=== PATIENT | female | born 1965 | race Two or more races ===

== ENCOUNTER 2025-09-27 10:13 | Inpatient (IN) | payer MEDICARE, MEDICAID, SELFPAY ==
[2025-09-27] VITALS (15 sets, daily range): BP systolic 125–161; BP diastolic 75–102; PULSE 62–85; RESP 13–19; TEMP 36.4–37.2; O2SAT 90–99; BMI 27.4; BMI 31.2
--- NOTE | 2025-09-27 10:49 | XR_ITS ---
Examination: CT chest, without intravenous contrast. CT abdomen, without intravenous contrast. CT pelvis, without intravenous contrast. 2-D sagittal and coronal reconstructions. 3-D reconstructions. Date and time of exam: September 27, 2025, 11:20 p.m. INDICATIONS: Patient drank hydrogen peroxide today with nausea vomiting CTDI vol (mgy) 8.56 DLP (MGycm) 583 Technique: Multiple CT images, 3.0 mm slice thickness, obtained chest, abdomen, pelvis, with the high-resolution 64 slice scanner.. Sagittal and coronal 2-D reconstructions are obtained. 3-D reconstructions Low dose protocols were performed. One or more of the following dose reduction techniques were used; automated exposure control, adjustment of the mA and/or KV according to patient size, use of iterative reconstruction technique. Findings: No thoracic aortic aneurysm dilatation Pulmonary artery segments are not enlarged No aspiration pneumonia No pleural disease Minimal air in the liver Liver is not enlarged Absent gallbladder Common hepatic common bile ducts not enlarged No pancreatic mass Mild dilatation renal pelvicalyceal systems no ureteral calculi Normal appendix No bowel obstruction Intact urinary bladder IMPRESSION: No aspiration pneumonia Minimal air in the liver, clinical correlation advised No air in the portal vein or mesenteric vein noted No bowel ischemia Absent gallbladder Mild dilatation renal pelvicalyceal systems, consider urinary tract infection Normal appendix No bowel obstruction
--- NOTE | 2025-09-27 10:58 | PC.NURSE ---
CALLED POISON CONTROL AND SPOKE TO JAMIE WITH THE FOLLOWING: OBS 6HR CT- R/O GAS EMBOLISM- CT CHEST/ABD, IF POSITIVE FOR GAS EMBOLISM PT WILL NEED TREATMENT WITH HYPERBARIC OXYGEN GIVE PT ANTIEMETICS, SUPPORTIVE CARE
--- NOTE | 2025-09-27 11:20 | EDNOTE_ITS ---
ED Overdose RME/HPI General Chief Complaint: Overdose Stated Complaint: N/V Time Seen by Provider: 09/27/25 11:13 Arrival date/time: 09/27/25 10:13 60-year-old female patient was brought in by EMS for evaluation regarding suicidal attempt. Incident happened about 10 AM this morning as patient ingested 3 to 4 ounces of hydrogen peroxide, now complaining of epigastric pain. Patient want to kill herself. After 20 minutes of ingestion patient vomited foamy vomitus with blood. Patient denies any other complaints. Related Data Allergies Allergy/AdvReac Type Severity Reaction Status Date / Time NKA Allergy Unknown Uncoded 09/27/25 10:23 Review of Systems Review of Systems Narrative Review of Systems: Review of system reviewed and within normal limits except mentioned in HPI ED Exam Narrative Physical exam: VITAL SIGNS: Reviewed. GENERAL APPEARANCE: Alert and interactive, follows commands, no acute distress, HEAD AND FACE: Non-traumatic. ENT: PERRL, pink conjunctivitis, eyelid no trauma, Mucous membrane moist. NECK: Supple, nontender, no nuchal rigidity. CHEST: No tenderness, no crepitus, no paradoxical movement, no retractions. LUNGS: Clear, well ventilated, symmetric, no rales, no wheezing, no ronchi, no stridor, good breath sounds bilaterally. HEART: Regular rate, regular rhythm, no murmur, no gallops. ABDOMEN: Soft, positive bowel sounds, nondistended, no guarding, epigastric pain,, no rebound, no masses, RECTAL: Deferred. GENITAL: Deferred. NEUROLOGICAL: Gross motor function intact sensory function intact, Appropriate for age. MUSCULOSKELETAL: low back nontender, full range of motion. EXTREMITIES: Nontender, full range of motion. SKIN: Color pink, dry, no rash, no lacerations, no abrasions, no contusions. LYMPHATICS: Deferred. Course Quality Measures none Orders Category Date Time Status 179 Psychiatric Hold NOW Care 09/27/25 11:45 Ordered COVID-19 Screening Questionnaire NOW Care 09/27/25 12:38 Active Decision to Admit X1 Care 09/27/25 12:37 Active NPO NOW Care 09/27/25 11:41 Active One-to-one observation NOW Care 09/27/25 11:10 Active Suicide precautions NOW Care 09/27/25 11:34 Active Suicide precautions NOW Care 09/27/25 11:44 Active Consult to Gastroenterology Stat Cons 09/27/25 11:41 Ordered Diet NPO (NOW) Diet 09/27/25 11:[address] chest abdomen pelvis wo Stat Exams 09/27/25 10:49 Completed Alcohol, Urine Stat Lab 09/27/25 12:06 Ordered CBC Stat Lab 09/27/25 10:48 Completed CMP [Comprehensive Metabolic Panel] Stat Lab 09/27/25 10:48 Completed Drug Screen,Urine Stat Lab 09/27/25 12:06 Ordered Lactate (Lactic Acid) Stat Lab 09/27/25 11:42 Ordered Magnesium Stat Lab 09/27/25 10:48 Completed UA, C/S IF [Urinalysis, C/S if Indicated] Stat Lab 09/27/25 12:06 Received Ondansetron Inj [Zofran Inj] Med 09/27/25 11:35 Discontinued 4 mg IVP X1 ONE Pantoprazole Inj [Protonix Inj] Med 09/27/25 11:35 Discontinued 80 mg IVP X1 ONE Ringers Lactated 1000 ml [Lactated Ringers] 1,000 ml Med 09/27/25 11:35 Discontinued IV 999 mls/hr Vital Signs Vital signs: Vital Signs Temperature 98.4 F 09/27/25 10:26 Pulse Rate 62 09/27/25 10:26 Respiratory Rate 19 09/27/25 10:26 Blood Pressure 147/87 H 09/27/25 10:26 Pulse Oximetry (%) 99 09/27/25 10:26 Oxygen Delivery Method Room Air 09/27/25 10:26 Overdose MDM Narrative MDM Narrative:: 60-year-old female patient was brought in by EMS for evaluation regarding suicidal attempt. Incident happened about 10 AM this morning as patient ingested 3 to 4 ounces of hydrogen peroxide, now complaining of epigastric pain. Patient want to kill herself. After 20 minutes of ingestion patient vomited foamy vomitus with blood. Patient denies any other complaints. CT scan of the chest abdomen pelvis was done to rule out gas embolism, and it came back unremarkable. Except for mild air in the liver. No perforation noted patient is about workup came back unremarkable. Patient was given IV fluids, Protonix IV and Zofran. I consulted Dr. Kang, GI specialist on-call, who told me that patient needs to be scoped. Patient was placed on n.p.o., and will be admitted Spoke with hospitalist, who admitted the patient. Patient data External records reviewed:: None Clinical information provided by:: patient Social determinants that could affect healthcare access:: none Patient has the following chronic illnesses:: None How is presenting disease/condition affected by chronic disease/condition?: no chronic disease Evaluation data The following diagnostics were reviewed and interpreted by me:: lab results and radiology exam(s) Lab and/or radiology exams considered but not ordered:: None Interpretation Summary: See above Medications / Prescriptions Medications or Prescriptions considered but not ordered:: None Medication administrations:: Medication Administration History Discontinued Medications Lactated Ringer's (Lactated Ringers) 1,000 mls @ 999 mls/hr IV .Q1H1M ONE Stop: 09/27/25 12:35 Ondansetron HCl (Ondansetron Inj 2 Mg/Ml Inj 2 Ml) 4 mg IVP X1 ONE; Protocol Stop: 09/27/25 11:36 Pantoprazole Sodium (Pantoprazole Inj 40 Mg Vial) 80 mg IVP X1 ONE Stop: 09/27/25 11:36 IV fluids Zofran and Pepcid Consultations Consultation(s) initiated? (list below): No Diagnosis Overdose Differential Diagnosis: drug overdose and other (Hydrated peroxide poisoning, suicidal attempts) Most likely diagnosis given after review of the tests above:: Hydrogen peroxide poisoning, suicidal attempts Admission Indicated Admission indicated?: indicated Admission Request Was there a request for admission?: Yes Admission Attestation Admission request attestation: Discussed case with [Dr. Zuniga] from Hospitalist service regarding admission. Discussed patients ED course, exam findings, labs, and radiology results. The Hospitalist [agrees] to accept the patient for admission. Disposition Plan Disposition Plan: Admit Discharge Plan Plan Patient Disposition: Admit Acute Care w/in Hospital Discharge Disposition comment: Stable Problem List Clinical Impression: Poisoning by hydrogen peroxide, Attempted suicide Patient/Caregiver Discharge Instructions Print Language: Japanese Stand Alone Forms: Tracee Award Info., Patient Portal Info Letter
--- NOTE | 2025-09-27 11:25 | PC.NURSE ---
PT BIB EMS WITH CHIEF C/O ACCIDENTAL INGESTION OF HYDROGEN PEROXIDE. PT REPORTED THAT HER MOTHER HAD POUR 3-4OZ OF HYDROGEN PEROXIDE (UNKNOWN STRENGTH) INTO AN EMPTY BOTTLE OF WATER, AND PT REPORTED THAT SHE PLACED THE BOTTLE WITH HYDROGEN PEROXIDE IN HER CAR AND WENT TO [place]. PT THEN REPORTED THAT SHE FORGOT THAT THE HYDROGEN PEROXIDE WAS INSIDE THE BOTTLE AND DRINK IT ACCIDENTAL THINKING IT WAS WATER. PT SIGNIFICANT OTHER WAS AT BEDSIDE, AND THEN I ASKED THE PT IF SHE WANTED TO HARM HER SELF AND SHE QUICKLY SAID NO COVERING HER FACE WITH HER GOWN SO HER SIGNIFICANT OTHER WOULDN'T SEE HER REACTION, BUT THE PT APPEARED TO BE IN FEAR IN THE PRESENT OF HER SIGNIFICANT OTHER. I THEN ASKED HER SIGNIFICANT OTHER TO STEP OUT IN WHICH HE DID. I THEN ASK THE PT AGAIN IF SHE WANTED TO HARM HER SELF AND SHE ADMITTED TO [facility]. PT REPORTS THAT SHE CAN'T TAKE IT ANYMORE AND DOES NOT WANT TO LIVE. PT WAS EDUCATION ON THE PLAN OF CARE, VANESSA HAMMER MADE AWARE, PT PLACED ON A 179, SI PRECAUTIONS IN PLACED WITH ONE ON ONE SITTER IN PLACED.
[2025-09-27 11:49] LABS: Basophils # (Auto) 0.1 Thou/mm3 (0.0-0.2); Basophils % (Auto) 1 % (0-2.5); Eosinophils # (Auto) 0.1 Thou/mm3 (0.0-0.5); Eosinophils % (Auto) 1 % (0-10); Hematocrit 44.7 % (36.0-46.0); Hemoglobin 15.1 g/dL (12.0-16.0); Immature Granulocytes Auto 0.04 Thou/mm3 (0.00-0.00); Lymphocytes # (Auto) 1.9 Thou/mm3 (1.0-4.8); Lymphocytes % (Auto) 27 % (10-50); Mean Corpuscular HGB Conc 33.8 g/dl (31.0-37.0); Mean Corpuscular Hemoglobin 28.9 pg (25.0-35.0); Mean Corpuscular Volume 86 fL (80-100); Monocytes # (Auto) 0.5 Thou/mm3 (0.0-0.8); Monocytes % (Auto) 7 % (0-12); Neutrophils # (Auto) 4.4 Thou/mm3 (1.8-7.7); Neutrophils % (Auto) 63 % (37-80); Nucleated Red Blood Cell # 0.00 Thou/mm3 (0.00-0.00); Nucleated Red Blood Cell % 0 /100 WBC (0); Platelet Count 261 Thou/mm3 (140-440); RDW Standard Deviation 42.6 fL (36.4-46.3); Red Blood Count 5.22 Miln/mm3 (4.00-5.20); White Blood Count 7.0 Thou/mm3 (3.6-11.0)
[2025-09-27 12:07] LABS: Alanine Aminotransferase 32 U/L (10-49); Albumin, Serum 5.0 gm/dL (3.5-5.0); Albumin/Globulin Ratio 1.5 (1.2-2.2); Alkaline Phosphatase 142 U/L (46-116); Anion Gap 13 (7-16); Aspartate Amino Transferase 26 U/L (0-34); BUN/Creatinine Ratio 20 Ratio (12-20); Bilirubin,Total 0.9 mg/dL (0.3-1.2); Blood Urea Nitrogen 16 mg/dL (9-23); Calcium 9.6 mg/dL (8.3-10.6); Calcium (Corrected) 9.6 mg/dL (8.5-10.1); Carbon Dioxide 25.1 mMol/L (20.0-31.0); Chloride 102 mMol/L (98-107); Creatinine (Component) 0.8 mg/dL (0.6-1.3); Estimated Creatinine Clearance 79.4 mL/min (>60); Globulin 3.4 gm/dL (2.3-3.5); Glucose 330 mg/dL (74-106); Magnesium 2.0 mg/dL (1.6-2.6); Osmolality,Calculated 293 (275-295); Potassium 3.7 mMol/L (3.4-5.1); Sodium 140 mMol/L (136-145); Total Protein 8.4 gm/dL (5.7-8.2); eGFR > 60 See Note
[2025-09-27 12:17] LABS: Collection Type, Urine Clean Catch
[2025-09-27 12:42] LABS: Bilirubin,Urine Negative (Negative); Blood,Urine Trace (Negative); Clarity,Urine Clear (Clear/Hazy); Color,Urine Lt-Yellow (Lt Yel-Yel); Culture Indicated,Urine Not Indicated; Glucose, Urine 4+ (Negative); Ketones,Urine 2+ (Negative); Leukocyte Esterase,Urine Negative (Negative); Nitrite,Urine Negative (Negative); PH,Urine 6.0 (5.0-7.0); Protein,Urine 1+ (Neg - Trace); RBC,Urine 7 /hpf (0-3); Specific Gravity,Urine 1.039 (1.001-1.035); Squamous Epithelial Cell,Urine 1 /hpf (0-5); Urobilinogen,Urine Negative mg/dL (0.0-1.0); WBC,Urine 2 /hpf (0-5)
--- NOTE | 2025-09-27 12:42 | XR_ITS ---
Examination: CT abdomen with intravenous contrast CT pelvis with intravenous contrast 2-D coronal reconstructions 2-D sagittal reconstructions Date and time of exam: September 27, 2025, 1455 hours Patient drank hydrogen peroxide with possible portal venous gas. CTDI: vol (mGy) 8.75 DLP: (mGycm) 495 Technique: Multiple axial sections of the abdomen and pelvis have been obtained. 64 slice high-resolution scanner used. 3 mm axial sections have been obtained, post intravenous injection 60 cc [id number] 2-D sagittal, coronal reconstructions obtained. Low dose protocols were performed. One or more of the following dose reduction techniques were used; automated exposure control, adjustment of the mA and/or KV according to patient size, use of iterative reconstruction technique. Findings: Currently no air in the liver noted No air in the mesenteric vein or portal vein No hydronephrosis No bowel obstruction No free air Intact urinary bladder No pericecal inflammatory change Normal appendix IMPRESSION: No portal venous gas identified
[2025-09-27 12:49] LABS: Alcohol, Urine Negative (Negative); Amphetamine/Methamp Scrn,U Negative (Negative); Barbiturate Screen,Urine Negative (Negative); Benzodiazepines Screen,Urine Negative (Negative); Benzoylecgonine Screen, Ur Negative (Negative); Fentanyl Screen,Urine Negative (Negative); Opiate Screen,Urine Negative (Negative); THC Screen,Urine Negative (Negative)
[2025-09-27 12:55] LABS: Lactate (Lactic Acid) 3.4 mMol/L (0.4-2.0)
[2025-09-27] MEDS: ONDANSETRON INJ 2 MG/ML INJ 2 ML 4 MG IVP (13:01)
[2025-09-27] MEDS: RINGERS LACTATED 1000 ML 1,000 ML 999 ML IV (13:03)
[2025-09-27 13:11] LABS: Lactate (Lactic Acid) 1.1 mMol/L (0.4-2.0)
[2025-09-27 13:16] LABS: INR 0.9 (0.9-1.3); Partial Thromboplastin Time 26.2 Seconds (22.0-36.0); Prothrombin Time 10.0 Seconds (9.0-12.2)
[2025-09-27 13:21] LABS: Lipase 35 U/L (12-53)
[2025-09-27 15:49] LABS: Reflex Lactate? Y
--- NOTE | 2025-09-27 15:56 | EKG_ITS ---
[facility] Test Date: 2025-09-27 Pat Name: CHELY PARIKH Department: Room: - Gender: Female Director Medical Safety: : 1965 Requested By: Michael Zuniga Order Number: [id number] Reading MD: Michael Zuniga Measurements Intervals Shushan Rate: 83 P: 65 WY: 144 QRS: 19 QRSD: 92 T: 42 QT: 395 QTc: 465 Interpretive Statements SINUS RHYTHM No previous ECG available for comparison /store/S0/[id number].pdf
--- NOTE | 2025-09-27 16:03 | PD.IMCONS ---
HPI Data of Consult Primary Care Provider: Physician No Primary/Family Consult Narrative Reason for consult: Hematemesis History of present illness: 60 years old female who ingested about 3 to 4 ounces of hydrogen peroxide 20 minutes later she had foamy Hematemesis and complaining of abdominal pain brought in by the ambulance She clearly wanted to kill herself and had a suicide attempt Poison center was called at my request cc:: cc: Review of Systems Review of Systems Systems Reviewed: All systems reviewed, normal except as documented Meds Home Medications and Allergies Allergies Allergy/AdvReac Type Severity Reaction Status Date / Time NKA Allergy Unknown Uncoded 09/27/25 10:23 Exam Vital Signs Temp Pulse Resp BP Pulse Ox O2 Del Method 98.2 F 84 17 138/92 H 95 Room Air 09/27/25 15:59 09/27/25 15:59 09/27/25 15:59 09/27/25 15:59 09/27/25 15:59 09/27/25 15:59 Constitutional Comments: Alert oriented Routine Respiratory Exam Comments: Normal to auscultation Routine Abdominal Exam Comments: Soft nontender Results Labs 09/27/25 10:48 09/27/25 10:48 Labs: Short CBC 09/27/25 Range/Units 10:48 WBC 7.0 (3.6-11.0) Thou/mm3 Hgb 15.1 (12.0-16.0) g/dL Hct 44.7 (36.0-46.0) % Plt Count 261 (140-440) Thou/mm3 BMP 09/27/25 10:48 Sodium 140 Potassium 3.7 Chloride 102 Carbon Dioxide 25.1 BUN 16 Creatinine 0.8 Glucose 330 H Calcium 9.6 Liver Function 09/27/25 Range/Units 10:48 Total Bilirubin 0.9 (0.3-1.2) mg/dL AST 26 (0-34) U/L ALT 32 (10-49) U/L Alkaline Phosphatase 142 H (46-116) U/L Albumin 5.0 (3.5-5.0) gm/dL Urine 09/27/25 Range/Units 12:06 Urine Color Lt-Yellow (Lt Yel-Yel) Urine Clarity Clear (Clear/Hazy) Urine pH 6.0 (5.0-7.0) Ur Specific [place] 1.039 H (1.001-1.035) Urine Protein 1+ A (Neg - Trace) Urine Glucose (UA) 4+ A (Negative) Assessment and Plan Additional Assessment & Plan Additional Plan: # Hematemesis secondary to ingestion of hydrogen peroxide CT scan of the abdomen pelvis negative except for air in the liver with no air in the biliary tree Plan N.p.o. IV Protonix Consent for fiberoptic esophagogastroduodenoscopy with possible biopsy possible therapeutic intervention under intravenous moderate sedation Thank you for the opportunity to participate in the care of this patient
--- NOTE | 2025-09-27 16:41 | ESHP_ITS ---
<Statement entered by Michael Zuniga MD - 09/28/25 05:34> Patient was seen and examined at bedside. I agree on the assessment and plan on this note as documented by resident Dr Sarabjit Fabian DO PGY1. 60-year-old female with past medical history of diabetes, hypertension, depression and hyperlipidemia presented to [facility] on 09/27/2025 with a chief complaint of suicide attempt after ingestion of hydrogen peroxide 3%. Patient reported ingesting about 3 to 4 ounces about 10 AM this morning. Poison control was called by ED, per poison control observe patient for 6 hours, CT to rule out gas embolism. CT abdomen pelvis chest without contrast negative and CT abdomen pelvis with contrast negative for any gas in portal system. Case was discussed with gastroenterology by ER patient will bleed EGD and supportive management, admitted to hospital. Scheduled for EGD today continue Protonix 40 twice daily, Zofran as needed. Started patient on sliding scale insulin and regular diet for management of diabetes blood glucose 350 on presentation. Will continue to monitor patient overnight consider medically clearing for discharge for crisis evaluation in a.m. Case discussed with attending Dr. Jessica Zuniga MD PGY-2 Documentation for date of: 09/27/25 HPI History of Present Illness History of present illness: History of Present Illness: Zack Mccartney, is 60yF, with PMH of diabetes, HTN, hypercholesterolemia, depression, leg length discrepancy (R>L), presented to the hospital on 09/27/2025 following a reported suicide attempt involving the ingestion of hydrogen peroxide. The patient stated that at approximately 10:00 am this morning (09/27), she consumed an estimated 3-4 ounces of a 3% hydrogen peroxide solution. She reported experiencing epigastric pain afterwards. She endorsed a history of prior suicidal behavior, including an incident in which she drove her car to the edge of a yamel with the intention of driving off, but stopped before acting on the impulse. The patient described multiple ongoing psychosocial stressors contributing to her depressive symptoms. She reported significant relational stress with her boyfriend, who she stated has alcohol use issues. She noted frequent verbal arguments related to his alcohol consumption, but denied any physical altercations. Per ED note, after 20 minutes of ingestion, patient vomited foamy vomitus with blood. The patient was notably tearful and exhibited emotional distress. She still had epigastric pain at the time of examination. Denied N/V, headache, palpitation, chest pain. Patient will be admitted for management of hydrogen peroxide intoxication. ED course: Vitals: Temperature 98.4, AK 62, RR 19, BP 147/87, 99% O2 saturation on room air. Labs: WBC 7.0, Hgb 15.1, sodium 140, potassium 3.7, creatinine 0.8, glucose 330, lactic acid 3.4, ALP 142, AST 26, ALT 32, lipase 35 UA: Yellow clear urine, urine protein 1+, urine glucose 4+, urine ketones 2+, urine blood trace, urine RBC 7, urine bacteria none All urine toxicology was negative EKG (09/27/2025): Sinus Rhythm CT chest/abd/pelvis wo contrast (09/27/2025): No bowel ischemia, Absent gallbladder, Minimal air in the liver, No air in the portal vein or mesenteric vein noted CT abd/pelvis w contrast (09/27/2025): No portal venous gas identified In ED, patient received IV protonix 80mg x1, IV Zofran 4mg x1, IV bolus LR 1L x1 Medical history: As stated above Surgical history: Hysterectomy, Cholecystectomy (based on CT findings) Allergies: NKDA Medications: Pending official med rec Family history: Father had cancer Social history: Denies smoking cigarettes, drinking alcohol or using other illicit drugs Review of Systems Review of Systems Narrative Review of Systems: All 12 systems assessed and the patient denies unless otherwise stated in HPI Exam Vital Signs Temp Pulse Resp BP Pulse Ox O2 Del Method O2 Flow Rate 98.2 F 80 14 147/79 H 99 Room Air 3 09/27/25 15:59 09/27/25 16:30 09/27/25 16:30 09/27/25 16:30 09/27/25 16:30 09/27/25 15:59 09/27/25 16:30 Narrative Exam General: AAO x3, In emotional distress, tearful. Eye: PERRL, EOMI, normal conjunctiva, no scleral icterus HENT: Normocephalic, atraumatic, hearing intact to conversation at normal volume, moist oral mucosa Neck: Supple, non-tender, no JVD, no lymphadenopathy Lungs: Non-labored respirations, symmetric chest rise, Clear to auscultate bilaterally, No wheezing, rhonchi, crackles Heart: Peripheral pulses intact bilaterally, Regular Rate and Rhythm. Abdomen: Soft, non-distended, no palpable masses, mild epigastric pain on palpation. Musculoskeletal: No visible joint swelling, Right lower extremity swelling, Leg length discrepancy (right leg longer than left). Skin: Skin is warm, dry, no rashes or lesions. Psychiatric: Cooperative, appropriate mood and affect, Awake and alert, not agitated Neuro: Cranial nerves II-XII grossly intact. Strength 5/5 throughout. Sensations intact to light touch. Results: Labs 09/28/25 04:34 09/28/25 04:34 Labs: Short CBC 09/27/25 Range/Units 10:48 WBC 7.0 (3.6-11.0) Thou/mm3 Hgb 15.1 (12.0-16.0) g/dL Hct 44.7 (36.0-46.0) % Plt Count 261 (140-440) Thou/mm3 BMP 09/27/25 10:48 Sodium 140 Potassium 3.7 Chloride 102 Carbon Dioxide 25.1 BUN 16 Creatinine 0.8 Glucose 330 H Calcium 9.6 Liver Function 09/27/25 Range/Units 10:48 Total Bilirubin 0.9 (0.3-1.2) mg/dL AST 26 (0-34) U/L ALT 32 (10-49) U/L Alkaline Phosphatase 142 H (46-116) U/L Albumin 5.0 (3.5-5.0) gm/dL Urine 09/27/25 Range/Units 12:06 Urine Color Lt-Yellow (Lt Yel-Yel) Urine Clarity Clear (Clear/Hazy) Urine pH 6.0 (5.0-7.0) Ur Specific [place] 1.039 H (1.001-1.035) Urine Protein 1+ A (Neg - Trace) Urine Glucose (UA) 4+ A (Negative) Quality Measures Quality Measures none Medications Home Medications and Allergies Allergies Allergy/AdvReac Type Severity Reaction Status Date / Time NKA Allergy Unknown Uncoded 09/27/25 10:23 Visit Medications Al Hydrox/Mg Hydrox/Simethicone (Mg Hyd/Al Hyd/Maximino (Maalox Reg) Susp 30 Ml Udc) 15 ml PO Q4HR EFREN Stop: 10/27/25 17:59 Dextrose (Dextrose 50%-Water Inj 50 Ml Syringe) 25 ml IV Q15MIN PRN PRN Reason: BG 50-70 responsive npo pt Stop: 10/27/25 16:37 Dextrose (Dextrose 50%-Water Inj 50 Ml Syringe) 50 ml IV Q15MIN PRN PRN Reason: BG <50 OR BG <70 & pt unresponsive Stop: 10/27/25 16:37 Diphenhydramine HCl (Diphenhydramine Inj 50 Mg/Ml Vial) 25 mg IVP PRNMRX1 PRN PRN Reason: MODERATE SEDATION Fentanyl Citrate (Fentanyl Cit Inj 50 Mcg/Ml Amp 2ml) 50 mcg IVP Q2M PRN PRN Reason: MODERATE SEDATION Glucagon (Glucagon Inj 1 Mg Vial) 1 mg IM Q15MIN PRN PRN Reason: BG <70, and no IV access Lactated Ringer's (Lactated Ringers) 1,000 mls @ 75 mls/hr IV .[id number] [facility] Stop: 09/28/25 05:19 Insulin Human Lispro (Insulin Lispro (Admelog) 1 Unit/0.01 Ml Unit) 0 unit SC Q6HR EFREN; Protocol Stop: 10/27/25 17:59 Midazolam HCl (Midazolam Inj 1 Mg/Ml Vial 2 Ml) 2 mg IVP Q2M PRN PRN Reason: Moderate Sedation Ondansetron HCl (Ondansetron Inj 2 Mg/Ml Inj 2 Ml) 4 mg IVP Q6H PRN; Protocol PRN Reason: NAUSEA OR VOMITING Stop: 10/27/25 15:52 Pantoprazole Sodium (Pantoprazole Inj 40 Mg Vial) 40 mg IVP BID [facility] Stop: 10/27/25 20:59 Sucralfate (Sucralfate Susp 1 Gm/10 Ml Udc) 1 gm PO QID [facility] Stop: 10/27/25 16:59 Discontinued Medications Benzocaine (Benzocaine 20% (Hurricaine) Drift 1 Dose) 0 dose TOP X1 ONE Stop: 09/27/25 16:11 Lactated Ringer's (Lactated Ringers) 1,000 mls @ 999 mls/hr IV .Q1H1M ONE Stop: 09/27/25 12:35 Last Infusion: 09/27/25 14:40 Dose: Infused Ondansetron HCl (Ondansetron Inj 2 Mg/Ml Inj 2 Ml) 4 mg IVP X1 ONE; Protocol Stop: 09/27/25 11:36 Last Admin: 09/27/25 13:01 Dose: 4 mg Pantoprazole Sodium (Pantoprazole Inj 40 Mg Vial) 80 mg IVP X1 ONE Stop: 09/27/25 11:36 Last Admin: 09/27/25 12:57 Dose: 80 mg Assessment & Plan Plan Zack Mccartney, is 60yF, with PMH of diabetes, HTN, hypercholesterolemia, depression, leg length discrepancy (R>L), presented to the hospital on 09/27/2025 following a reported suicide attempt involving the ingestion of hydrogen peroxide. Patient will be admitted for management of hydrogen peroxide intoxication. #Caustic ingestion (Hydrogen Peroxide 3% solution) #Upper GI bleed rule out #Lactic Acidosis - Resolved -at approximately 10:00 am this morning (09/27), she consumed an estimated 3-4 ounces of a 3% hydrogen peroxide solution. -Epigastric pain afterwards -Per ED note, after 20 minutes of ingestion, patient vomited foamy vomitus with blood. -Lactic acid 3.4, now 1.1 -All urine toxicology was negative -EKG (09/27/2025): Sinus Rhythm -CT chest/abd/pelvis wo contrast (09/27/2025): No bowel ischemia, Absent gallbladder, Minimal air in the liver, No air in the portal vein or mesenteric vein noted -CT abd/pelvis w contrast (09/27/2025): No portal venous gas identified -EGD (09/27/2025): Esophagitis, Gastritis with hemorrhage, characterized by congestion (edema), Normal Examined duodenum Plan: -Maalox 15ml po q4hr -Carafate.sucralfate suspension 1g 4 times daily -IV protonix 40mg bid -IVF LR 75mls/hr #Suicidal ideation #Depression -Ingestion of hydrogen peroxide for attempted suicide -Prior suicidal behavior, including an incident in which she drove her car to the edge of a y[place] with the intention of driving off, but stopped before acting on the impulse. -Multiple psychosocial stressors including relationship with her boyfriend Plan: -TSH pending -Pending Med rec -One to One observation -Suicide precautions #Diabetes Mellitus #Hx of Hypercholesterolemia -On admission, patient's Blood glucose level was 330 Plan: -Pending HbA1c -Insulin Degludec 5units qd -On SSI #Leg length Discrepancy (R>L) #Right leg swelling -According to patient, her right leg often swells because all the pressure goes to her right leg because right leg is longer. -Pending US edgar doppler bilateral LE. Disposition: Med tele Diet: Regular diet GI prophylaxis: IV protonix 40mg bid DVT prophylaxis: SCD Code: FULL Assessment and plan discussed with my attending physician Dr. Lopez and Dr. Zuniga (PGY-2) Dr. Fabian (PGY-1) - Internal medicine resident Attending Provider Attestation/Addendum 60 yo female with diabetes mellitus, hypertension, depression was admitted for abdominal pain and coffee ground emesis after ingesting Hydrogen peroxie at home in an apparent suicideal attempt. CT scan performed showed minimal air in the liver. She has stable vitals and was taken to GI lab for endoscopy by Dr. Kang. Continue 1 to 1 sitteer and close hemodynamic monitoring. Discussed with housestaff, PGY [address] Dr[address] Zuniga.
--- NOTE | 2025-09-27 16:41 | SUR.PHASEI ---
Pt. arrived to recovery via gurney, eyes closed, VSS with exception of 02 at 90%, NC applied at 2 liters, lung sounds clear, equal expansion ariane., no c/o pain or nausea at this time, pt. allowed to sleep. Report received from Callie MELO.
--- NOTE | 2025-09-27 17:03 | XR_ITS ---
Examination: Venous duplex lower extremity sonogram, bilateral. Date and time of exam: September 27, 2025, 1855 hours INDICATIONS: Leg swelling and pain this week Technique: Multiple sonographic images of the deep venous system have been obtained. B-mode/2-D grayscale imaging of vascular structures and Doppler spectral analysis (waveforms) and color performed Both legs are examined. Findings: Deep venous systems do not demonstrate abnormal echogenicity. All visualized deep veins exhibit compressibility. All visualized deep veins exhibit augmentation. Impression: Negative for deep vein thrombosis
--- NOTE | 2025-09-27 17:10 | SUR.PHASEI ---
Called and gave report on pt. s/p egd to Caesar MELO in ER.
--- NOTE | 2025-09-27 17:11 | PC.NURSE ---
OR NURSE ELA CALLED AND REPORTED THAT THIS PT WAS FOUND TO HAVE HEMORRHAGIC GASTRITIS SECONDARY TO HYDROGEN PEROXIDE. OR NURSE MADE AWARE TO CALLED REPORT TO XIOMARA MELO WHO IS GOING TO TAKE OVER THIS PT
--- NOTE | 2025-09-27 17:55 | SUR.PHASEI ---
Pt. transferred to room 383 via gurney by staff, VSS, no c/o pain or nausea at this time, pt. allowed to sleep, IV saline Linda izaguirre RN assumed care of pt.
[2025-09-27] MEDS: MG HYD/AL HYD/SIME (Maalox Reg) SUSP 30 ML UDC 15 ML PO ×2 (18:07→21:30)
--- NOTE | 2025-09-27 18:33 | PC.NURSE ---
patient cannot remember home meds and there are no external med lists available
--- NOTE | 2025-09-27 18:45 | PC.NURSE ---
Received call from poison control all questions answered. Stated continue with current supportive measures and can contact if any further questions.
[2025-09-27] MEDS: RINGERS LACTATED 1000 ML 1,000 ML 75 ML IV (19:36)
[2025-09-27] MEDS: SUCRALFATE SUSP 1 GM/10 ML UDC PO (20:12)
[2025-09-27] MEDS: INSULIN LISPRO (AdmeLOG) 1 UNIT/0.01 ML UNIT SC (20:16)
[2025-09-27 21:04] LABS: Lactic Acid, 3 HR 1.7 mMol/L (0.4-2.0)
[2025-09-28] VITALS (7 sets, daily range): BP systolic 125–145; BP diastolic 67–84; PULSE 75–86; RESP 15–98; TEMP 36.3–36.8; O2SAT 95–99; BMI 31.4
[2025-09-28] MEDS: MG HYD/AL HYD/SIME (Maalox Reg) SUSP 30 ML UDC 15 ML PO ×6 (01:51→21:05)
[2025-09-28] MEDS: SUCRALFATE SUSP 1 GM/10 ML UDC PO ×4 (05:18→20:50)
[2025-09-28 06:26] LABS: Basophils # (Auto) 0.1 Thou/mm3 (0.0-0.2); Basophils % (Auto) 1 % (0-2.5); Eosinophils # (Auto) 0.2 Thou/mm3 (0.0-0.5); Eosinophils % (Auto) 2 % (0-10); Hematocrit 40.7 % (36.0-46.0); Hemoglobin 13.6 g/dL (12.0-16.0); Immature Granulocytes Auto 0.02 Thou/mm3 (0.00-0.00); Lymphocytes # (Auto) 2.2 Thou/mm3 (1.0-4.8); Lymphocytes % (Auto) 32 % (10-50); Mean Corpuscular HGB Conc 33.4 g/dl (31.0-37.0); Mean Corpuscular Hemoglobin 28.8 pg (25.0-35.0); Mean Corpuscular Volume 86 fL (80-100); Monocytes # (Auto) 0.6 Thou/mm3 (0.0-0.8); Monocytes % (Auto) 9 % (0-12); Neutrophils # (Auto) 3.9 Thou/mm3 (1.8-7.7); Neutrophils % (Auto) 57 % (37-80); Nucleated Red Blood Cell # 0.00 Thou/mm3 (0.00-0.00); Nucleated Red Blood Cell % 0 /100 WBC (0); Platelet Count 223 Thou/mm3 (140-440); RDW Standard Deviation 43.7 fL (36.4-46.3); Red Blood Count 4.72 Miln/mm3 (4.00-5.20); White Blood Count 6.9 Thou/mm3 (3.6-11.0)
[2025-09-28 06:53] LABS: Glucose Estimated Average 269 mg/dL (80-131); Hemoglobin A1C 11.0 % Hgb (4.8-6.0)
[2025-09-28 06:57] LABS: Alanine Aminotransferase 31 U/L (10-49); Albumin, Serum 4.3 gm/dL (3.5-5.0); Albumin/Globulin Ratio 1.5 (1.2-2.2); Alkaline Phosphatase 122 U/L (46-116); Anion Gap 8 (7-16); Aspartate Amino Transferase 34 U/L (0-34); BUN/Creatinine Ratio 18 Ratio (12-20); Bilirubin,Total 0.8 mg/dL (0.3-1.2); Blood Urea Nitrogen 14 mg/dL (9-23); Calcium 9.2 mg/dL (8.3-10.6); Calcium (Corrected) 9.2 mg/dL (8.5-10.1); Carbon Dioxide 28.4 mMol/L (20.0-31.0); Cardiac Risk Estimate 5.3 RATIO (3.7-5.6); Chloride 102 mMol/L (98-107); Cholesterol 252 mg/dL (132-200); Creatinine (Component) 0.8 mg/dL (0.6-1.3); Estimated Creatinine Clearance 67.3 mL/min (>60); Free T4 (Free Thyroxine) 1.24 ng/dL (0.89-1.76); Globulin 2.8 gm/dL (2.3-3.5); Glucose 288 mg/dL (74-106); HDL Cholesterol 48 mg/dL (40-60); LDL Cholesterol,Calculated 133 mg/dL (0-130); Magnesium 2.0 mg/dL (1.6-2.6); Osmolality,Calculated 287 (275-295); Phosphorous 2.8 mg/dL (2.4-5.1); Potassium 4.0 mMol/L (3.4-5.1); Sodium 138 mMol/L (136-145); Thyroid Stimulating Hormone 1.99 uIU/mL (0.55-4.78); Total Protein 7.1 gm/dL (5.7-8.2); Triglycerides 354 mg/dL (30-150); eGFR > 60 See Note
[2025-09-28] MEDS: INSULIN LISPRO (AdmeLOG) 1 UNIT/0.01 ML UNIT SC ×4 (07:45→20:52)
[2025-09-28] MEDS: INSULIN DEGLUDEC 5 UNIT/0.05 ML (PER 5 UNITS) SC ×2 (08:27→14:15)
[2025-09-28] MEDS: INSULIN LISPRO (AdmeLOG) 1 UNIT/0.01 ML UNIT 2 UNIT SC ×2 (14:16→17:19)
--- NOTE | 2025-09-28 15:21 | PD.RESPRO ---
Documentation for date of: 09/28/25 Subjective Subjective Interval history: Patient seen at bedside. Underwent EGD yesterday EGD shows gastritis otherwise unremarkable Continue pantoprazole sucralfate and Maalox Patient's blood sugar uncontrolled, adjusted sliding scale insulin Started on degludec 20 units, lispro 5 units ACHS Patient will be medically cleared once blood glucose control is achieved. Exam Vital Signs Temp Pulse Resp BP Pulse Ox O2 Del Method O2 Flow Rate 98.2 F 77 18 133/84 H 99 Room Air 2 09/28/25 12:00 09/28/25 12:00 09/28/25 12:00 09/28/25 12:00 09/28/25 12:00 09/28/25 12:00 09/27/25 16:51 Narrative Exam General: AAO x3, In emotional distress, tearful. Eye: PERRL, EOMI, normal conjunctiva, no scleral icterus HENT: Normocephalic, atraumatic, hearing intact to conversation at normal volume, moist oral mucosa Neck: Supple, non-tender, no JVD, no lymphadenopathy Lungs: Non-labored respirations, symmetric chest rise, Clear to auscultate bilaterally, No wheezing, rhonchi, crackles Heart: Peripheral pulses intact bilaterally, Regular Rate and Rhythm. Abdomen: Soft, non-distended, no palpable masses, mild epigastric pain on palpation. Musculoskeletal: No visible joint swelling, Right lower extremity swelling. Skin: Skin is warm, dry, no rashes or lesions. Psychiatric: Cooperative, appropriate mood and affect, Awake and alert, not agitated Neuro: Cranial nerves II-XII grossly intact. Strength 5/5 throughout. Sensations intact to light touch. Objective Labs 09/28/25 04:34 09/28/25 04:34 Labs: Laboratory Results - last 24 hr 09/27/25 09/27/25 09/28/25 15:01 20:48 04:34 WBC 6.9 RBC 4.72 Hgb 13.6 Hct 40.7 MCV 86 MCH 28.8 MCHC 33.4 RDW Std Deviation 43.7 Plt Count 223 D Neut % (Auto) 57 Lymph % (Auto) 32 [place] % (Auto) 9 Eos % (Auto) 2 Baso % (Auto) 1 Neut # (Auto) 3.9 Lymph # (Auto) 2.2 [place] # (Auto) 0.6 Eos # (Auto) 0.2 Baso # (Auto) 0.1 Immature Gran # (Auto) 0.02 H Absolute Nucleated RBC 0.00 Immature Gran % 0 Nucleated RBC % 0 Sodium 138 Potassium 4.0 Chloride 102 Carbon Dioxide 28.4 Anion Gap 8 BUN 14 Creatinine 0.8 Estim Creat Clear Calc 67.3 eGFR > 60 BUN/Creatinine Ratio [address] Glu mg/dL 269 H Hemoglobin A1c 11.0 H Calculated Osmolality 287 Lactic Acid 1.7 Calcium 9.2 Corrected Calcium 9.2 Phosphorus 2.8 Magnesium 2.0 Total Bilirubin 0.8 AST 34 ALT 31 Alkaline Phosphatase 122 H D Total Protein 7.1 Albumin 4.3 D Globulin 2.8 Albumin/Globulin Ratio 1.5 Triglycerides 354 H Cholesterol 252 H LDL Cholesterol, Calc 133 H HDL Cholesterol 48 Cholesterol/HDL Ratio 5.3 TSH 1.99 Free T4 1.24 Blood Type O Negative Antibody Screen NEGATIVE Blood Bank Wristband ID Yes Quality Measures Quality Measures none Assessment & Plan Assessment Current Active Medications: Generic Name Dose Route Start Last Admin Trade Name Freq PRN Reason Stop Dose Admin Al Hydrox/Mg Hydrox/Simethicone 15 ml 09/27/25 18:00 09/28/25 14:17 Mg Hyd/Al Hyd/Maximino (Maalox Reg) Susp 30 Ml Udc PO 10/27/25 17:59 15 ml Q4HR EFREN Administration Dextrose 25 ml 09/27/25 16:38 Dextrose 50%-Water Inj 50 Ml Syringe IV 10/27/25 16:37 Q15MIN PRN BG 50-70 responsive npo pt Dextrose 50 ml 09/27/25 16:38 Dextrose 50%-Water Inj 50 Ml Syringe IV 10/27/25 16:37 Q15MIN PRN BG <50 OR BG <70 & pt unresponsive Glucagon 1 mg 09/27/25 16:38 Glucagon Inj 1 Mg Vial IM Q15MIN PRN BG <70, and no IV access Insulin Degludec 10 unit 09/29/25 09:00 Insulin Degludec 5 Unit/0.05 Ml (Per 5 Units) SC 10/29/25 08:59 QDAY EFREN Insulin Human Lispro 0 unit 09/27/25 17:00 09/28/25 11:22 Insulin Lispro (Admelog) 1 Unit/0.01 Ml Unit SC 10/27/25 16:59 4 unit ACHS EFREN Administration Protocol Insulin Human Lispro 2 unit 09/28/25 13:20 09/28/25 14:16 Insulin Lispro (Admelog) 1 Unit/0.01 Ml Unit SC 10/28/25 13:19 2 unit ACHS EFREN Administration Ondansetron HCl 4 mg 09/27/25 15:53 Ondansetron Inj 2 Mg/Ml Inj 2 Ml IVP 10/27/25 15:52 Q6H PRN NAUSEA OR VOMITING Protocol Pantoprazole Sodium 40 mg 09/27/25 21:00 09/28/25 08:26 Pantoprazole Inj 40 Mg Vial IVP 10/27/25 20:59 40 mg BID EFREN Administration Sucralfate 1 gm 09/27/25 17:00 09/28/25 11:24 Sucralfate Susp 1 Gm/10 Ml Udc PO 10/27/25 16:59 1 gm QID EFREN Administration Plan Zack Mccartney, is 60yF, with PMH of diabetes, HTN, hypercholesterolemia, depression, leg length discrepancy (R>L), presented to the hospital on 09/27/2025 following a reported suicide attempt involving the ingestion of hydrogen peroxide. Patient will be admitted for management of hydrogen peroxide intoxication. #Gastritis #Caustic ingestion (Hydrogen Peroxide 3% solution) #Upper GI bleed ruled out #Lactic Acidosis - Resolved -at approximately 10:00 am this morning (09/27), she consumed an estimated 3-4 ounces of a 3% hydrogen peroxide solution. -Epigastric pain afterwards -Per ED note, after 20 minutes of ingestion, patient vomited foamy vomitus with blood. -Lactic acid 3.4, now 1.1 -All urine toxicology was negative -EKG (09/27/2025): Sinus Rhythm -CT chest/abd/pelvis wo contrast (09/27/2025): No bowel ischemia, Absent gallbladder, Minimal air in the liver, No air in the portal vein or mesenteric vein noted -CT abd/pelvis w contrast (09/27/2025): No portal venous gas identified -EGD (09/27/2025): Esophagitis, Gastritis with hemorrhage, characterized by congestion (edema), Normal Examined duodenum Plan: -Maalox 15ml po q4hr -Carafate.sucralfate suspension 1g 4 times daily -PO protonix 40mg bid #Suicidal ideation #Depression -Ingestion of hydrogen peroxide for attempted suicide -Prior suicidal behavior, including an incident in which she drove her car to the edge of a yamel with the intention of driving off, but stopped before acting on the impulse. -Multiple psychosocial stressors including relationship with her boyfriend Plan: -One to One observation -Suicide precautions #Diabetes Mellitus, hemoglobin A1c 11 #Hx of Hypercholesterolemia -On admission, patient's Blood glucose level was 330 Plan: - Insulin degludec 20 units daily - Lispro 5 units ACHS -> change to AC in a.m. - Sliding scale insulin step 3 - Hypoglycemia protocol #Right leg swelling -According to patient, her right leg often swells because all the pressure goes to her right leg because right leg is longer. - Venous Doppler negative for DVT Disposition: Med tele Diet: Regular diet GI prophylaxis: IV protonix 40mg bid DVT prophylaxis: SCD Code: FULL Case discussed with Attending Physician Dr. Frederic Keen MD Internal Medicine PGY-2 Disclaimer: This note was dictated by speech recognition. Minor errors in laboratory apparatus glass grinder may be present due to voice recognition software. Attending Provider Attestation/Addendum I have discussed and was present for the essential components of the history, physical examination, diagnosis, and treatment plan with the resident. I agree with the patient's care as documented by the resident and amended herein by me. Vivek Khan DO. Although this document has been carefully reviewed, there may still be some phonetic and other typographical errors. These errors are purely grammatical due to imperfections in the software program and should not be construed in any way to compromise the substance of the patient's medical care during this visit. Patient seen and evaluated this AM. No acute events overnight, patient was pleasant in the a.m., denied any SI/HI. Labs largely unremarkable however blood glucose elevated to 74 this morning. Patient does have uncontrolled type 2 diabetes, A1c was 11. Patient also has hyperlipidemia, triglycerides 354, total cholesterol 252 and LDL 133 measured this admission. EGD performed after the patient's caustic ingestion demonstrated esophagitis in the lower third of the esophagus, patchy severe inflammation with hemorrhage characterized by congestion was found in the entire stomach, and normal duodenum was noted. Patient Now on regular diet, will continue Maalox and Carafate per GI recommendations. No further GI workup is necessary. Once the patient's blood glucose normalizes, preferably under 200, we will medically clear the patient assuming no other issues arise and is cleared for social work evaluation.
[2025-09-28] MEDS: DICYCLOMINE INJ 10 MG/ML 2ML VIAL IM (15:25)
--- NOTE | 2025-09-28 18:13 | ESPR_ITS ---
Documentation for date of: 09/28/25 Subjective Subjective Interval history: Patient evaluated Hemoglobin hematocrit 13.6 and 40.7 Exam Vital Signs Temp Pulse Resp BP Pulse Ox O2 Del Method O2 Flow Rate 97.8 F 86 18 145/82 H 97 Room Air 2 09/28/25 16:00 09/28/25 16:00 09/28/25 16:00 09/28/25 16:00 09/28/25 16:00 09/28/25 16:00 09/27/25 16:51 Objective Labs 09/28/25 04:34 09/28/25 04:34 Labs: Laboratory Results - last 24 hr 09/27/25 09/28/25 20:48 04:34 WBC 6.9 RBC 4.72 Hgb 13.6 Hct 40.7 MCV 86 MCH 28.8 MCHC 33.4 RDW Std Deviation 43.7 Plt Count 223 D Neut % (Auto) 57 Lymph % (Auto) 32 [place] % (Auto) 9 Eos % (Auto) 2 Baso % (Auto) 1 Neut # (Auto) 3.9 Lymph # (Auto) 2.2 [place] # (Auto) 0.6 Eos # (Auto) 0.2 Baso # (Auto) 0.1 Immature Gran # (Auto) 0.02 H Absolute Nucleated RBC 0.00 Immature Gran % 0 Nucleated RBC % 0 Sodium 138 Potassium 4.0 Chloride 102 Carbon Dioxide 28.4 Anion Gap 8 BUN 14 Creatinine 0.8 Estim Creat Clear Calc 67.3 eGFR > 60 BUN/Creatinine Ratio 18 [address]ucose [address] Glu mg/dL 269 H Hemoglobin A1c 11.0 H Calculated Osmolality 287 Lactic Acid 1.7 Calcium 9.2 Corrected Calcium 9.2 Phosphorus 2.8 Magnesium 2.0 Total Bilirubin 0.8 AST 34 ALT 31 Alkaline Phosphatase 122 H D Total Protein 7.1 Albumin 4.3 D Globulin 2.8 Albumin/Globulin Ratio 1.5 Triglycerides 354 H Cholesterol 252 H LDL Cholesterol, Calc 133 H HDL Cholesterol 48 Cholesterol/HDL Ratio 5.3 TSH 1.99 Free T4 1.24 Impressions Impression: Status post ingestion of hydrogen peroxide with hemorrhagic gastritis Continue current management Assessment & Plan A&P Narrative # Hematemesis secondary to ingestion of hydrogen peroxide CT scan of the abdomen pelvis negative except for air in the liver with no air in the biliary tree Plan N.p.o. IV Protonix Consent for fiberoptic esophagogastroduodenoscopy with possible biopsy possible therapeutic intervention under intravenous moderate sedation Thank you for the opportunity to participate in the care of this patient Time Spent With Patient Time: Total time spent is greater than 50% in coordination of care (as documented) at patient's floor/unit and/or counseling patient:
[2025-09-28] MEDS: PANTOPRAZOLE 40 MG TABLET PO (20:50)
[2025-09-28] MEDS: INSULIN LISPRO (AdmeLOG) 1 UNIT/0.01 ML UNIT 5 UNIT SC (20:52)
[2025-09-28] MEDS: INSULIN DEGLUDEC 5 UNIT/0.05 ML (PER 5 UNITS) 10 UNIT SC (20:53)
[2025-09-29] VITALS (9 sets, daily range): BP systolic 118–153; BP diastolic 72–89; PULSE 76–91; RESP 12–98; TEMP 36.3–36.8; O2SAT 95–99
[2025-09-29] MEDS: MG HYD/AL HYD/SIME (Maalox Reg) SUSP 30 ML UDC 15 ML PO ×5 (05:07→21:00)
[2025-09-29] MEDS: SUCRALFATE SUSP 1 GM/10 ML UDC PO ×4 (05:07→20:42)
[2025-09-29 05:37] LABS: Basophils # (Auto) 0.0 Thou/mm3 (0.0-0.2); Basophils % (Auto) 1 % (0-2.5); Eosinophils # (Auto) 0.1 Thou/mm3 (0.0-0.5); Eosinophils % (Auto) 2 % (0-10); Hematocrit 38.8 % (36.0-46.0); Hemoglobin 13.2 g/dL (12.0-16.0); Immature Granulocytes Auto 0.03 Thou/mm3 (0.00-0.00); Lymphocytes # (Auto) 1.7 Thou/mm3 (1.0-4.8); Lymphocytes % (Auto) 30 % (10-50); Mean Corpuscular HGB Conc 34.0 g/dl (31.0-37.0); Mean Corpuscular Hemoglobin 29.7 pg (25.0-35.0); Mean Corpuscular Volume 87 fL (80-100); Monocytes # (Auto) 0.5 Thou/mm3 (0.0-0.8); Monocytes % (Auto) 9 % (0-12); Neutrophils # (Auto) 3.3 Thou/mm3 (1.8-7.7); Neutrophils % (Auto) 58 % (37-80); Nucleated Red Blood Cell # 0.00 Thou/mm3 (0.00-0.00); Nucleated Red Blood Cell % 0 /100 WBC (0); Platelet Count 205 Thou/mm3 (140-440); RDW Standard Deviation 43.0 fL (36.4-46.3); Red Blood Count 4.45 Miln/mm3 (4.00-5.20); White Blood Count 5.7 Thou/mm3 (3.6-11.0)
[2025-09-29 06:02] LABS: Alanine Aminotransferase 28 U/L (10-49); Albumin, Serum 4.0 gm/dL (3.5-5.0); Albumin/Globulin Ratio 1.5 (1.2-2.2); Alkaline Phosphatase 110 U/L (46-116); Anion Gap 10 (7-16); Aspartate Amino Transferase 26 U/L (0-34); BUN/Creatinine Ratio 26 Ratio (12-20); Bilirubin,Total 0.6 mg/dL (0.3-1.2); Blood Urea Nitrogen 18 mg/dL (9-23); Calcium 9.1 mg/dL (8.3-10.6); Calcium (Corrected) 9.1 mg/dL (8.5-10.1); Carbon Dioxide 27.3 mMol/L (20.0-31.0); Chloride 103 mMol/L (98-107); Creatinine (Component) 0.7 mg/dL (0.6-1.3); Estimated Creatinine Clearance 75.1 mL/min (>60); Globulin 2.6 gm/dL (2.3-3.5); Glucose 243 mg/dL (74-106); Magnesium 2.0 mg/dL (1.6-2.6); Osmolality,Calculated 289 (275-295); Phosphorous 3.5 mg/dL (2.4-5.1); Potassium 3.8 mMol/L (3.4-5.1); Sodium 140 mMol/L (136-145); Total Protein 6.6 gm/dL (5.7-8.2); eGFR > 60 See Note
[2025-09-29] MEDS: INSULIN LISPRO (AdmeLOG) 1 UNIT/0.01 ML UNIT SC ×4 (07:35→20:43)
[2025-09-29] MEDS: INSULIN LISPRO (AdmeLOG) 1 UNIT/0.01 ML UNIT 5 UNIT SC (07:36)
[2025-09-29] MEDS: PANTOPRAZOLE 40 MG TABLET PO ×2 (08:34→20:42)
[2025-09-29] MEDS: INSULIN DEGLUDEC 5 UNIT/0.05 ML (PER 5 UNITS) 20 UNIT SC (08:35)
[2025-09-29] MEDS: INSULIN LISPRO (AdmeLOG) 1 UNIT/0.01 ML UNIT 8 UNIT SC ×3 (11:36→20:44)
[2025-09-29] MEDS: INSULIN DEGLUDEC 5 UNIT/0.05 ML (PER 5 UNITS) SC (12:11)
--- NOTE | 2025-09-29 12:23 | PC.SS ---
Rounding: Per , pt blood sugars still being monitored, not medically clear yet. Makeda BARRIOS made aware and is on standby
--- NOTE | 2025-09-29 14:48 | ESPR_ITS ---
Documentation for date of: 09/29/25 Subjective Subjective Interval history: No overnight events. Patient seen examined at bedside. Patient initially resting comfortably, later in day became distressed complaining of burning pain in throat/stomach. Denied nausea, vomiting. Continue Maalox, sucralfate per GI recs. Increased insulin, blood glucose remains elevated. Psych eval prior to discharge once medically cleared. Exam Vital Signs Temp Pulse Resp BP Pulse Ox O2 Del Method O2 Flow Rate 98.1 F 77 18 153/89 H 95 Room Air 2 09/29/25 12:00 09/29/25 12:00 09/29/25 12:00 09/29/25 12:00 09/29/25 12:00 09/29/25 12:00 09/27/25 16:51 Narrative Exam General: AAO x3, In emotional distress, tearful. Eye: PERRL, EOMI, normal conjunctiva, no scleral icterus HENT: Normocephalic, atraumatic, hearing intact to conversation at normal volume, moist oral mucosa Neck: Supple, non-tender, no JVD, no lymphadenopathy Lungs: Non-labored respirations, symmetric chest rise, Clear to auscultate bilaterally, No wheezing, rhonchi, crackles Heart: Peripheral pulses intact bilaterally, Regular Rate and Rhythm. Abdomen: Soft, non-distended, no palpable masses, mild epigastric pain on palpation. Musculoskeletal: No visible joint swelling, Right lower extremity swelling. Skin: Skin is warm, dry, no rashes or lesions. Psychiatric: Cooperative, appropriate mood and affect, Awake and alert, not agitated, but tearful affect, able to be called. Neuro: Cranial nerves II-XII grossly intact. Strength 5/5 throughout. Sensations intact to light touch. Objective Labs 09/29/25 04:15 09/29/25 04:15 Labs: Laboratory Results - last 24 hr 09/29/25 04:15 WBC 5.7 RBC 4.45 Hgb 13.2 Hct 38.8 MCV 87 MCH 29.7 MCHC 34.0 RDW Std Deviation 43.0 Plt Count 205 Neut % (Auto) 58 Lymph % (Auto) 30 [place] % (Auto) 9 Eos % (Auto) 2 Baso % (Auto) 1 Neut # (Auto) 3.3 Lymph # (Auto) 1.7 [place] # (Auto) 0.5 Eos # (Auto) 0.1 Baso # (Auto) 0.0 Immature Gran # (Auto) 0.03 H Absolute Nucleated RBC 0.00 Immature Gran % 1 H Nucleated RBC % 0 Sodium 140 Potassium 3.8 Chloride 103 Carbon Dioxide 27.3 Anion Gap 10 BUN 18 Creatinine 0.7 Estim Creat Clear Calc 75.1 eGFR > 60 BUN/Creatinine Ratio 26 H Glucose 243 H Calculated Osmolality 289 Calcium 9.1 Corrected Calcium 9.1 Phosphorus 3.5 Magnesium 2.0 Total Bilirubin 0.6 AST 26 ALT 28 Alkaline Phosphatase 110 Total Protein 6.6 Albumin 4.0 Globulin 2.6 Albumin/Globulin Ratio 1.5 Quality Measures Quality Measures VTE prophylaxis Assessment & Plan Assessment Current Active Medications: Generic Name Dose Route Start Last Admin Trade Name Freq PRN Reason Stop Dose Admin Al Hydrox/Mg Hydrox/Simethicone 15 ml 09/27/25 18:00 09/29/25 13:28 Mg Hyd/Al Hyd/Maximino (Maalox Reg) Susp 30 Ml Udc PO 10/27/25 17:59 15 ml Q4HR EFREN Administration Dextrose 25 ml 09/27/25 16:38 Dextrose 50%-Water Inj 50 Ml Syringe IV 10/27/25 16:37 Q15MIN PRN BG 50-70 responsive npo pt Dextrose 50 ml 09/27/25 16:38 Dextrose 50%-Water Inj 50 Ml Syringe IV 10/27/25 16:37 Q15MIN PRN BG <50 OR BG <70 & pt unresponsive Glucagon 1 mg 09/27/25 16:38 Glucagon Inj 1 Mg Vial IM Q15MIN PRN BG <70, and no IV access Insulin Degludec 25 unit 09/30/25 09:00 Insulin Degludec 5 Unit/0.05 Ml (Per 5 Units) SC 10/30/25 08:59 QDAY [facility] Insulin Human Lispro 0 unit 09/28/25 16:04 09/29/25 11:35 Insulin Lispro (Admelog) 1 Unit/0.01 Ml Unit SC 10/27/25 16:59 4 unit ACHS [facility] Administration Protocol Insulin Human Lispro 8 unit 09/29/25 11:30 09/29/25 11:36 Insulin Lispro (Admelog) 1 Unit/0.01 Ml Unit SC 10/29/25 11:29 8 unit ACHS EFREN Administration Ondansetron HCl 4 mg 09/27/25 15:53 Ondansetron Inj 2 Mg/Ml Inj 2 Ml IVP 10/27/25 15:52 Q6H PRN NAUSEA OR VOMITING Protocol Pantoprazole Sodium 40 mg 09/28/25 21:00 09/29/25 08:34 Pantoprazole 40 Mg Tablet PO 10/28/25 20:59 40 mg BID EFREN Administration Sucralfate 1 gm 09/27/25 17:00 09/29/25 11:37 Sucralfate Susp 1 Gm/10 Ml Udc PO 10/27/25 16:59 1 gm QID EFREN Administration Plan Zack Mccartney, is 60yF, with PMH of diabetes, HTN, hypercholesterolemia, depression, leg length discrepancy (R>L), presented to the hospital on 09/27/2025 following a reported suicide attempt involving the ingestion of hydrogen peroxide. Patient will be admitted for management of hydrogen peroxide intoxication. #Gastritis #Caustic ingestion (Hydrogen Peroxide 3% solution) #Upper GI bleed ruled out #Lactic Acidosis - Resolved -at approximately 10:00 am this morning (09/27), she consumed an estimated 3-4 ounces of a 3% hydrogen peroxide solution. -Epigastric pain afterwards -Per ED note, after 20 minutes of ingestion, patient vomited foamy vomitus with blood. -Lactic acid 3.4, now 1.1 -All urine toxicology was negative -EKG (09/27/2025): Sinus Rhythm -CT chest/abd/pelvis wo contrast (09/27/2025): No bowel ischemia, Absent gallbladder, Minimal air in the liver, No air in the portal vein or mesenteric vein noted -CT abd/pelvis w contrast (09/27/2025): No portal venous gas identified -EGD (09/27/2025): Esophagitis, Gastritis with hemorrhage, characterized by congestion (edema), Normal Examined duodenum Plan: -Maalox 15ml po q4hr -Carafate.sucralfate suspension 1g 4 times daily -PO protonix 40mg bid #Diabetes Mellitus, hemoglobin A1c 11 #Hx of Hypercholesterolemia -On admission, patient's Blood glucose level was 330 Plan: - Insulin degludec 25 units daily - Lispro 8 units ACHS - Sliding scale insulin step 3 - Hypoglycemia protocol #Suicidal ideation #Depression -Ingestion of hydrogen peroxide for attempted suicide -Prior suicidal behavior, including an incident in which she drove her car to the edge of a [place] with the intention of driving off, but stopped before acting on the impulse. -Multiple psychosocial stressors including relationship with her boyfriend Plan: -One to One observation -Suicide precautions #Right leg swelling -According to patient, her right leg often swells because all the pressure goes to her right leg because right leg is longer. - Venous Doppler negative for DVT Disposition: Med tele Diet: Carb consistent low GI prophylaxis: IV protonix 40mg bid DVT prophylaxis: SCD Code: FULL Case discussed with Attending Physician Dr. Frederic Ashley MD Internal Medicine PGY-2 Disclaimer: This note was dictated by speech recognition. Minor errors in double backer may be present due to voice recognition software. Attending Provider Attestation/Addendum I have discussed and was present for the essential components of the history, physical examination, diagnosis, and treatment plan with the resident. I agree with the patient's care as documented by the resident and amended herein by me. Vivek Khan DO. Although this document has been carefully reviewed, there may still be some phonetic and other typographical errors. These errors are purely grammatical due to imperfections in the software program and should not be construed in any way to compromise the substance of the patient's medical care during this visit. Patient seen and evaluated this AM. No acute events overnight, patient did have throat pain this morning, likely from the caustic hydrogen peroxide she ingested prior to admission as part of her SI. Patient is not medically cleared as of yet, blood glucose still elevated in the 250s today, we did uptitrate the patient's insulin, will reevaluate, possible medical clearance for crisis evaluation tomorrow.
--- NOTE | 2025-09-29 15:07 | PC.SS ---
Allyson Dixon is a 60-year-old female admitted to Med Surg for Caustic Ingestion. SS conducted bedside contact with the patient to complete initial assessment and to discuss discharge planning, pt 1:1 merly Talbot, CAN assited with translating to pt as she is Swedish speaking. Role and reason explained. Patient confirmed demographic information. Patient identifies sister Ashley Benz [phone] as her surrogate decision maker. Pt states she is able to complete all ADL?s independently. No need for any source of DME, pt lives with her son Jimmy. Pt goes to [facility] in [place] for PCP needs. Pharmacy of choice is [facility]. Discharge options discussed and the pt wishes to return home, pt is pending medical clearance for a mental health eval.? If DC home family will provide transportation upon DC. visitor services associate will remain available to address any further concerns. DC Plan: Pending MHE (pending medical clearance) Contact: Allyson Soliz ? Address: Confirmed on face sheet PCP: [facility]
--- NOTE | 2025-09-29 17:45 | PD.IMPROG ---
Documentation for date of: 09/29/25 Subjective Subjective Interval history: patient evaluated on Protonix sucralfate and Maalox Exam Vital Signs Temp Pulse Resp BP Pulse Ox O2 Del Method O2 Flow Rate 97.8 F 91 12 130/79 98 Room Air 2 09/29/25 16:00 09/29/25 16:00 09/29/25 16:00 09/29/25 16:00 09/29/25 16:00 09/29/25 16:00 09/29/25 16:00 Objective Labs 09/29/25 04:15 09/29/25 04:15 Labs: Laboratory Results - last 24 hr 09/29/25 04:15 WBC 5.7 RBC 4.45 Hgb 13.2 Hct 38.8 MCV 87 MCH 29.7 MCHC 34.0 RDW Std Deviation 43.0 Plt Count 205 Neut % (Auto) 58 Lymph % (Auto) 30 [place] % (Auto) 9 Eos % (Auto) 2 Baso % (Auto) 1 Neut # (Auto) 3.3 Lymph # (Auto) 1.7 [place] # (Auto) 0.5 Eos # (Auto) 0.1 Baso # (Auto) 0.0 Immature Gran # (Auto) 0.03 H Absolute Nucleated RBC 0.00 Immature Gran % 1 H Nucleated RBC % 0 Sodium 140 Potassium 3.8 Chloride 103 Carbon Dioxide 27.3 Anion Gap 10 BUN 18 Creatinine 0.7 Estim Creat Clear Calc 75.1 eGFR > 60 BUN/Creatinine Ratio 26 H Glucose 243 H Calculated Osmolality 289 Calcium 9.1 Corrected Calcium 9.1 Phosphorus 3.5 Magnesium 2.0 Total Bilirubin 0.6 AST 26 ALT 28 Alkaline Phosphatase 110 Total Protein 6.6 Albumin 4.0 Globulin 2.6 Albumin/Globulin Ratio 1.5 Impressions Impression: Gastritis secondary to the injury caused by hydrogen peroxide ingestion No dysphagia Continue current management Assessment & Plan A&P Narrative # Hematemesis secondary to ingestion of hydrogen peroxide CT scan of the abdomen pelvis negative except for air in the liver with no air in the biliary tree Plan N.p.o. IV Protonix Consent for fiberoptic esophagogastroduodenoscopy with possible biopsy possible therapeutic intervention under intravenous moderate sedation Thank you for the opportunity to participate in the care of this patient Time Spent With Patient Time: Total time spent is greater than 50% in coordination of care (as documented) at patient's floor/unit and/or counseling patient:
[2025-09-30] VITALS (9 sets, daily range): BP systolic 127–138; BP diastolic 73–85; PULSE 74–90; RESP 15–98; TEMP 36.1–36.4; O2SAT 95–98
[2025-09-30] MEDS: SUCRALFATE SUSP 1 GM/10 ML UDC PO ×4 (05:00→20:43)
[2025-09-30] MEDS: MG HYD/AL HYD/SIME (Maalox Reg) SUSP 30 ML UDC 15 ML PO ×5 (05:00→21:21)
[2025-09-30 05:50] LABS: Basophils # (Auto) 0.0 Thou/mm3 (0.0-0.2); Basophils % (Auto) 1 % (0-2.5); Eosinophils # (Auto) 0.1 Thou/mm3 (0.0-0.5); Eosinophils % (Auto) 1 % (0-10); Hematocrit 39.4 % (36.0-46.0); Hemoglobin 13.3 g/dL (12.0-16.0); Immature Granulocytes Auto 0.03 Thou/mm3 (0.00-0.00); Lymphocytes # (Auto) 2.0 Thou/mm3 (1.0-4.8); Lymphocytes % (Auto) 26 % (10-50); Mean Corpuscular HGB Conc 33.8 g/dl (31.0-37.0); Mean Corpuscular Hemoglobin 29.3 pg (25.0-35.0); Mean Corpuscular Volume 87 fL (80-100); Monocytes # (Auto) 0.7 Thou/mm3 (0.0-0.8); Monocytes % (Auto) 10 % (0-12); Neutrophils # (Auto) 4.6 Thou/mm3 (1.8-7.7); Neutrophils % (Auto) 62 % (37-80); Nucleated Red Blood Cell # 0.00 Thou/mm3 (0.00-0.00); Nucleated Red Blood Cell % 0 /100 WBC (0); Platelet Count 207 Thou/mm3 (140-440); RDW Standard Deviation 42.5 fL (36.4-46.3); Red Blood Count 4.54 Miln/mm3 (4.00-5.20); White Blood Count 7.4 Thou/mm3 (3.6-11.0)
[2025-09-30 06:22] LABS: Alanine Aminotransferase 28 U/L (10-49); Albumin, Serum 3.9 gm/dL (3.5-5.0); Albumin/Globulin Ratio 1.4 (1.2-2.2); Alkaline Phosphatase 100 U/L (46-116); Anion Gap 8 (7-16); Aspartate Amino Transferase 29 U/L (0-34); BUN/Creatinine Ratio 24 Ratio (12-20); Bilirubin,Total 0.6 mg/dL (0.3-1.2); Blood Urea Nitrogen 17 mg/dL (9-23); Calcium 9.1 mg/dL (8.3-10.6); Calcium (Corrected) 9.2 mg/dL (8.5-10.1); Carbon Dioxide 28.0 mMol/L (20.0-31.0); Chloride 105 mMol/L (98-107); Creatinine (Component) 0.7 mg/dL (0.6-1.3); Estimated Creatinine Clearance 75.1 mL/min (>60); Globulin 2.8 gm/dL (2.3-3.5); Glucose 150 mg/dL (74-106); Magnesium 2.4 mg/dL (1.6-2.6); Osmolality,Calculated 285 (275-295); Phosphorous 4.2 mg/dL (2.4-5.1); Potassium 3.7 mMol/L (3.4-5.1); Sodium 141 mMol/L (136-145); Total Protein 6.7 gm/dL (5.7-8.2); eGFR > 60 See Note
[2025-09-30] MEDS: INSULIN LISPRO (AdmeLOG) 1 UNIT/0.01 ML UNIT SC ×3 (07:35→20:44)
[2025-09-30] MEDS: INSULIN LISPRO (AdmeLOG) 1 UNIT/0.01 ML UNIT 8 UNIT SC (07:36)
[2025-09-30] MEDS: INSULIN DEGLUDEC 5 UNIT/0.05 ML (PER 5 UNITS) 25 UNIT SC (09:12)
[2025-09-30] MEDS: PANTOPRAZOLE 40 MG TABLET PO ×2 (09:12→20:43)
--- NOTE | 2025-09-30 10:49 | PC.SS ---
MANAGER OF INTERNATIONAL informed by resident that patient is not medically cleared for mental health evaluation. MANAGER OF INTERNATIONAL notified ED coordinator.
[2025-09-30] MEDS: INSULIN LISPRO (AdmeLOG) 1 UNIT/0.01 ML UNIT 10 UNIT SC ×3 (11:41→20:45)
--- NOTE | 2025-09-30 14:00 | ESPR_ITS ---
Documentation for date of: 09/30/25 Subjective Subjective Interval history: Patient evaluated Hemoglobin hematocrit stable Exam Vital Signs Temp Pulse Resp BP Pulse Ox O2 Del Method O2 Flow Rate 97.0 F 90 18 130/82 98 Room Air 2 09/30/25 12:00 09/30/25 12:00 09/30/25 12:00 09/30/25 12:00 09/30/25 12:00 09/30/25 12:00 09/29/25 16:00 Objective Labs 09/30/25 04:15 09/30/25 04:15 Labs: Laboratory Results - last 24 hr 09/30/25 04:15 WBC 7.4 RBC 4.54 Hgb 13.3 Hct 39.4 MCV 87 MCH 29.3 MCHC 33.8 RDW Std Deviation 42.5 Plt Count 207 Neut % (Auto) 62 Lymph % (Auto) 26 [place] % (Auto) 10 Eos % (Auto) 1 Baso % (Auto) 1 Neut # (Auto) 4.6 Lymph # (Auto) 2.0 [place] # (Auto) 0.7 Eos # (Auto) 0.1 Baso # (Auto) 0.0 Immature Gran # (Auto) 0.03 H Absolute Nucleated RBC 0.00 Immature Gran % 0 Nucleated RBC % 0 Sodium 141 Potassium 3.7 Chloride 105 Carbon Dioxide 28.0 Anion Gap 8 BUN 17 Creatinine 0.7 Estim Creat Clear Calc 75.1 eGFR > 60 BUN/Creatinine Ratio 24 H Glucose 150 H D Calculated Osmolality 285 Calcium 9.1 Corrected Calcium 9.2 Phosphorus 4.2 Magnesium 2.4 Total Bilirubin 0.6 AST 29 ALT 28 Alkaline Phosphatase 100 Total Protein 6.7 Albumin 3.9 Globulin 2.8 Albumin/Globulin Ratio 1.4 Impressions Impression: Erosive hemorrhagic gastritis secondary to ingestion of hydrogen peroxide Continue current management Assessment & Plan A&P Narrative # Hematemesis secondary to ingestion of hydrogen peroxide CT scan of the abdomen pelvis negative except for air in the liver with no air in the biliary tree Plan N.p.o. IV Protonix Consent for fiberoptic esophagogastroduodenoscopy with possible biopsy possible therapeutic intervention under intravenous moderate sedation Thank you for the opportunity to participate in the care of this patient Time Spent With Patient Time: Total time spent is greater than 50% in coordination of care (as documented) at patient's floor/unit and/or counseling patient:
--- NOTE | 2025-09-30 14:31 | ESPR_ITS ---
<Statement entered by Marc Casas MD - 09/30/25 22:52> I saw and examined patient personally and supervised PGY 1 resident, Dr. Carrington with formulating a management plan. I agree with the documentation with the exceptions as listed below. Zack Mccartney, is 60yF, with PMH of diabetes, HTN, hypercholesterolemia, depression, leg length discrepancy (R>L), presented to the hospital on 09/27/2025 following a reported suicide attempt involving the ingestion of hydrogen peroxide. Patient will be admitted for management of hydrogen peroxide intoxication. Problem list: 1. Possible suicide attempt secondary to hydrogen peroxide ingestion 2. Lactic acidosis?resolved 3. Insulin-dependent diabetes mellitus type 2 [11%] 4. Hyperlipidemia 5. Depression Patient's has uncontrolled diabetes mellitus type 2 and currently fasting blood glucose 160s. Scheduled on insulin degludec 25 units SC daily, increased insulin lispro to 10 units SC 3 times daily with meals from 8 units. Anticipate medical clearance within next 24 hours. Once medically cleared, will refer for crisis evaluation. Plan of care discussed with Attending Dr. Jessica Casas MD PGY 2 Disclaimer: This note was dictated by speech recognition. Minor errors in it systems analyst may be present due to voice recognition software. Documentation for date of: 09/30/25 Subjective Subjective Interval history: Patient seen and examined at bedside. Endorses feeling okay today, denies suicidal ideation or homicidal ideation or AVH. States that has history of suicidal ideation but not at this time. States that her mother made her drink the hydrogen peroxide when she thought it was water. Pending better glucose control for medical clearance for crisis team to come evaluate, anticipate medical clearance within 1-2 days. Increased lispro 8 units to 10 thus scheduled be degludec 25 units with lispro 10 units ACHS with SSI 3 step 3. Exam Vital Signs Temp Pulse Resp BP Pulse Ox O2 Del Method O2 Flow Rate 97.0 F 90 18 130/82 98 Room Air 2 09/30/25 12:00 09/30/25 12:00 09/30/25 12:00 09/30/25 12:00 09/30/25 12:00 09/30/25 12:00 09/29/25 16:00 Narrative Exam GENERAL: AOx3, no acute distress HEENT: mucous membranes moist, bilateral sclera anicteric CARDIOVASCULAR: regular rate and rhythm, S1/S2 present, no murmurs appreciated PULMONARY: clear to auscultation bilaterally, no rales/rhonchi/wheezes ABDOMINAL: soft, non-tender, non-distended, no rebound/guarding, bowel sounds present EXTREMITIES: no peripheral edema SKIN: warm and dry, intact, no rashes NEURO: CN II-XII grossly intact, no focal deficits, alert, following commands Psych: Behavior: Lying comfortably in bed, no psychomotor agitation or retardation Speech: Normal rate, volume and tone, non-pressured Mood: Ok Affect: Euthymic, broad range, normal intensity and reactivity, stable Thought process: Linear and logical Associations: Tight Thought content: Denies SI/HI/AVH, denies persecutory delusions Perceptual disturbance: Does not appear to be responding to internal stimuli, not internally preoccupied Insight: poor Objective Labs 09/30/25 04:15 09/30/25 04:15 Labs: Laboratory Results - last 24 hr 09/30/25 04:15 WBC 7.4 RBC 4.54 Hgb 13.3 Hct 39.4 MCV 87 MCH 29.3 MCHC 33.8 RDW Std Deviation 42.5 Plt Count 207 Neut % (Auto) 62 Lymph % (Auto) 26 [place] % (Auto) 10 Eos % (Auto) 1 Baso % (Auto) 1 Neut # (Auto) 4.6 Lymph # (Auto) 2.0 [place] # (Auto) 0.7 Eos # (Auto) 0.1 Baso # (Auto) 0.0 Immature Gran # (Auto) 0.03 H Absolute Nucleated RBC 0.00 Immature Gran % 0 Nucleated RBC % 0 Sodium 141 Potassium 3.7 Chloride 105 Carbon Dioxide 28.0 Anion Gap 8 BUN 17 Creatinine 0.7 Estim Creat Clear Calc 75.1 eGFR > 60 BUN/Creatinine Ratio 24 H Glucose 150 H D Calculated Osmolality 285 Calcium 9.1 Corrected Calcium 9.2 Phosphorus 4.2 Magnesium 2.4 Total Bilirubin 0.6 AST 29 ALT 28 Alkaline Phosphatase 100 Total Protein 6.7 Albumin 3.9 Globulin 2.8 Albumin/Globulin Ratio 1.4 Quality Measures Quality Measures VTE prophylaxis Assessment & Plan Assessment Current Active Medications: Generic Name Dose Route Start Last Admin Trade Name Freq PRN Reason Stop Dose Admin Al Hydrox/Mg Hydrox/Simethicone 15 ml 09/27/25 18:00 09/30/25 13:53 Mg Hyd/Al Hyd/Maximino (Maalox Reg) Susp 30 Ml Udc PO 10/27/25 17:59 15 ml Q4HR EFREN Administration Dextrose 25 ml 09/27/25 16:38 Dextrose 50%-Water Inj 50 Ml Syringe IV 10/27/25 16:37 Q15MIN PRN BG 50-70 responsive npo pt Dextrose 50 ml 09/27/25 16:38 Dextrose 50%-Water Inj 50 Ml Syringe IV 10/27/25 16:37 Q15MIN PRN BG <50 OR BG <70 & pt unresponsive Glucagon 1 mg 09/27/25 16:38 Glucagon Inj 1 Mg Vial IM Q15MIN PRN BG <70, and no IV access Insulin Degludec 25 unit 09/30/25 09:00 09/30/25 09:12 Insulin Degludec 5 Unit/0.05 Ml (Per 5 Units) SC 10/30/25 08:59 25 unit QDAY EFREN Administration Insulin Human Lispro 0 unit 09/28/25 16:04 09/30/25 11:41 Insulin Lispro (Admelog) 1 Unit/0.01 Ml Unit SC 10/27/25 16:59 4 unit ACHS EFREN Administration Protocol Insulin Human Lispro 10 unit 09/30/25 11:30 09/30/25 11:41 Insulin Lispro (Admelog) 1 Unit/0.01 Ml Unit SC 10/30/25 11:29 10 unit ACHS EFREN Administration Ondansetron HCl 4 mg 09/27/25 15:53 Ondansetron Inj 2 Mg/Ml Inj 2 Ml IVP 10/27/25 15:52 Q6H PRN NAUSEA OR VOMITING Protocol Pantoprazole Sodium 40 mg 09/28/25 21:00 09/30/25 09:12 Pantoprazole 40 Mg Tablet PO 10/28/25 20:59 40 mg BID EFREN Administration Sucralfate 1 gm 09/27/25 17:00 09/30/25 11:42 Sucralfate Susp 1 Gm/10 Ml Udc PO 10/27/25 16:59 1 gm QID EFREN Administration Plan Zack Mccartney, is 60yF, with PMH of diabetes, HTN, hypercholesterolemia, depression, leg length discrepancy (R>L), presented to the hospital on 09/27/2025 following a reported suicide attempt involving the ingestion of hydrogen peroxide. Patient will be admitted for management of hydrogen peroxide intoxication. #Gastritis with hemorrhage #Caustic ingestion (Hydrogen Peroxide 3% solution) #Lactic Acidosis - Resolved -at approximately 10:00 am morning (09/27), she consumed an estimated 3-4 ounces of a 3% hydrogen peroxide solution. Epigastric pain afterwards Per ED note, after 20 minutes of ingestion, patient vomited foamy vomitus with blood Lactic acid 3.4, now 1.1. Utox neg -EKG (09/27/2025): Sinus Rhythm -CT chest/abd/pelvis wo contrast (09/27/2025): No bowel ischemia, Absent gallbladder, Minimal air in the liver, No air in the portal vein or mesenteric vein noted -CT abd/pelvis w contrast (09/27/2025): No portal venous gas identified -EGD (09/27/2025): Esophagitis, Gastritis with hemorrhage, characterized by congestion (edema), Normal Examined duodenum Plan: -GI consulted: Maalox 15ml po q4hr Carafate sucralfate suspension 1g 4 times daily, PO protonix 40mg bid #Diabetes Mellitus, hemoglobin A1c 11 #Hx of Hypercholesterolemia -On admission, patient's Blood glucose level was 330 Plan: - Insulin degludec 25 units daily - Increased to Lispro 10 units ACHS - Sliding scale insulin step 3 - Hypoglycemia protocol #Suicidal ideation #Depression -Ingestion of hydrogen peroxide for attempted suicide -Prior suicidal behavior, including an incident in which she drove her car to the edge of a [place] with the intention of driving off, but stopped before acting on the impulse. -Multiple psychosocial stressors including relationship with her boyfriend Plan: -One to One observation, suicide precautions #Right leg swelling -According to patient, her right leg often swells because all the pressure goes to her right leg because right leg is longer. - Venous Doppler negative for DVT - CTM Disposition: Med [facility], anticipate medical clearance for crisis team to evaluate within 1 to 2 days pending adequate glucose control Diet: Carb consistent low GI prophylaxis: PO protonix 40mg bid DVT prophylaxis: SCD Code: FULL Case discussed with Attending Physician Dr. Jessica Carrington, DO Internal Medicine PGY-1 Attending Provider Attestation/Addendum Patient seen and examined. She has stable vital signs she complains of mild dysphagia no chest pain no headache. No confusion. Sitter said that she is cooperative and calm. Will need crisis evaluation once medically cleared. Blood sugars not well- controlled. Will adjust insulin dose. I discussed with and supervised the resident physician who took care of this patient. I agree with the assessment and plan as above.
[2025-10-01] VITALS (7 sets, daily range): BP systolic 116–146; BP diastolic 68–84; PULSE 71–92; RESP 14–18; TEMP 36.1–36.4; O2SAT 95–99
[2025-10-01] MEDS: MG HYD/AL HYD/SIME (Maalox Reg) SUSP 30 ML UDC 15 ML PO ×6 (02:04→21:25)
[2025-10-01] MEDS: SUCRALFATE SUSP 1 GM/10 ML UDC PO ×4 (05:34→21:25)
[2025-10-01 06:23] LABS: Basophils # (Auto) 0.0 Thou/mm3 (0.0-0.2); Basophils % (Auto) 0 % (0-2.5); Eosinophils # (Auto) 0.1 Thou/mm3 (0.0-0.5); Eosinophils % (Auto) 1 % (0-10); Hematocrit 39.3 % (36.0-46.0); Hemoglobin 13.4 g/dL (12.0-16.0); Immature Granulocytes Auto 0.03 Thou/mm3 (0.00-0.00); Lymphocytes # (Auto) 2.0 Thou/mm3 (1.0-4.8); Lymphocytes % (Auto) 25 % (10-50); Mean Corpuscular HGB Conc 34.1 g/dl (31.0-37.0); Mean Corpuscular Hemoglobin 29.6 pg (25.0-35.0); Mean Corpuscular Volume 87 fL (80-100); Monocytes # (Auto) 0.7 Thou/mm3 (0.0-0.8); Monocytes % (Auto) 9 % (0-12); Neutrophils # (Auto) 5.2 Thou/mm3 (1.8-7.7); Neutrophils % (Auto) 65 % (37-80); Nucleated Red Blood Cell # 0.00 Thou/mm3 (0.00-0.00); Nucleated Red Blood Cell % 0 /100 WBC (0); Platelet Count 215 Thou/mm3 (140-440); RDW Standard Deviation 44.1 fL (36.4-46.3); Red Blood Count 4.52 Miln/mm3 (4.00-5.20); White Blood Count 8.0 Thou/mm3 (3.6-11.0)
[2025-10-01 08:16] LABS: Alanine Aminotransferase 31 U/L (10-49); Albumin, Serum 4.0 gm/dL (3.5-5.0); Alkaline Phosphatase 99 U/L (46-116); Anion Gap 9 (7-16); Aspartate Amino Transferase 32 U/L (0-34); BUN/Creatinine Ratio 31 Ratio (12-20); Bilirubin,Total 0.6 mg/dL (0.3-1.2); Blood Urea Nitrogen 22 mg/dL (9-23); Calcium 9.3 mg/dL (8.3-10.6); Calcium (Corrected) 9.3 mg/dL (8.5-10.1); Carbon Dioxide 26.9 mMol/L (20.0-31.0); Chloride 104 mMol/L (98-107); Creatinine (Component) 0.7 mg/dL (0.6-1.3); Estimated Creatinine Clearance 75.1 mL/min (>60); Glucose 160 mg/dL (74-106); Magnesium 2.1 mg/dL (1.6-2.6); Osmolality,Calculated 285 (275-295); Phosphorous 4.4 mg/dL (2.4-5.1); Potassium 4.3 mMol/L (3.4-5.1); Sodium 140 mMol/L (136-145); eGFR > 60 See Note
[2025-10-01] MEDS: INSULIN LISPRO (AdmeLOG) 1 UNIT/0.01 ML UNIT SC ×2 (08:29→12:11)
[2025-10-01] MEDS: INSULIN LISPRO (AdmeLOG) 1 UNIT/0.01 ML UNIT 10 UNIT SC (08:30)
[2025-10-01] MEDS: PANTOPRAZOLE 40 MG TABLET PO ×2 (08:31→21:25)
[2025-10-01] MEDS: INSULIN DEGLUDEC 5 UNIT/0.05 ML (PER 5 UNITS) 25 UNIT SC (08:31)
--- NOTE | 2025-10-01 11:19 | PC.SS ---
ASSISTANT PRODUCTION EDITOR informed by merchandise planner that patient is not medically cleared for mental health evaluation.
[2025-10-01] MEDS: INSULIN LISPRO (AdmeLOG) 1 UNIT/0.01 ML UNIT 12 UNIT SC ×3 (12:12→21:25)
[2025-10-01 13:06] LABS: Albumin/Globulin Ratio 1.3 (1.2-2.2); Globulin 3.1 gm/dL (2.3-3.5); Total Protein 7.1 gm/dL (5.7-8.2)
--- NOTE | 2025-10-01 13:44 | ESPR_ITS ---
<Statement entered by Marc Casas MD - 10/01/25 16:51> I saw and examined patient personally and supervised PGY 1 resident, Dr. Carrington with formulating a management plan. I agree with the documentation with the exceptions as listed below. Zack Mccartney, is 60yF, with PMH of diabetes, HTN, hypercholesterolemia, depression, leg length discrepancy (R>L), presented to the hospital on 09/27/2025 following a reported suicide attempt involving the ingestion of hydrogen peroxide. Patient will be admitted for management of hydrogen peroxide intoxication. Problem list: 1. Possible suicide attempt secondary to hydrogen peroxide ingestion 2. Lactic acidosis?resolved 3. Insulin-dependent diabetes mellitus type 2 [11%] 4. Hyperlipidemia 5. Depression Patient's has uncontrolled diabetes mellitus type 2 and currently fasting blood glucose 160s. Increased her degludec to 28 units SC daily from 25 units SC daily. Also increase insulin lispro to 12 units SC 3 times daily with meals from 10. During today her postprandial blood glucose was elevated at 263 post lunch. Will monitor blood glucose overnight and possible medical clearance tomorrow once blood glucose <200. Plan of care discussed with Attending Dr. Erin Casas MD PGY 2 Disclaimer: This note was dictated by speech recognition. Minor errors in controller repairer and tester may be present due to voice recognition software. Documentation for date of: 10/01/25 Subjective Subjective Interval history: No acute overnight events. Patient seen examined at bedside. No new complaints, denies suicidal ideation or homicidal ideation. Pending improvement in glucose control for medical clearance for crisis team to evaluate. Bedside BG 175-low 200s, however during the day 260s. Increased degludec to 28 units and lispro to 12 units with sliding scale scale [address] Anticipate medical clearance within 1 to 2 days. Exam Vital Signs Temp Pulse Resp BP Pulse Ox O2 Del Method O2 Flow Rate 97.1 F 90 18 146/83 H 98 Room Air 2 10/01/25 08:00 10/01/25 12:00 10/01/25 08:00 10/01/25 08:00 10/01/25 08:00 10/01/25 08:00 09/29/25 16:00 Narrative Exam GENERAL: AOx3, no acute distress HEENT: mucous membranes moist, bilateral sclera anicteric CARDIOVASCULAR: regular rate and rhythm, S1/S2 present, no murmurs appreciated PULMONARY: clear to auscultation bilaterally, no rales/rhonchi/wheezes ABDOMINAL: soft, non-tender, non-distended, no rebound/guarding, bowel sounds present EXTREMITIES: no peripheral edema SKIN: warm and dry, intact, no rashes NEURO: CN II-XII grossly intact, no focal deficits, alert, following commands Psych: Behavior: Lying comfortably in bed, no psychomotor agitation or retardation Speech: Normal rate, volume and tone, non-pressured Mood: Ok Affect: Euthymic, broad range, normal intensity and reactivity, stable Thought process: Linear and logical Associations: Tight Thought content: Denies SI/HI/AVH, denies persecutory delusions Perceptual disturbance: Does not appear to be responding to internal stimuli, not internally preoccupied Insight: poor Objective Labs 10/01/25 06:00 10/01/25 06:00 Labs: Laboratory Results - last 24 hr 10/01/25 06:00 WBC 8.0 RBC 4.52 Hgb 13.4 Hct 39.3 MCV 87 MCH 29.6 MCHC 34.1 RDW Std Deviation 44.1 Plt Count 215 Neut % (Auto) 65 Lymph % (Auto) 25 [place] % (Auto) 9 Eos % (Auto) 1 Baso % (Auto) 0 Neut # (Auto) 5.2 Lymph # (Auto) 2.0 [place] # (Auto) 0.7 Eos # (Auto) 0.1 Baso # (Auto) 0.0 Immature Gran # (Auto) 0.03 H Absolute Nucleated RBC 0.00 Immature Gran % 0 Nucleated RBC % 0 Sodium 140 Potassium 4.3 D Chloride 104 Carbon Dioxide 26.9 Anion Gap 9 BUN 22 Creatinine 0.7 Estim Creat Clear Calc 75.1 eGFR > 60 BUN/Creatinine Ratio 31 H Glucose 160 H Calculated Osmolality 285 Calcium 9.3 Corrected Calcium 9.3 Phosphorus 4.4 Magnesium 2.1 Total Bilirubin 0.6 AST 32 ALT 31 Alkaline Phosphatase 99 Total Protein 7.1 Albumin 4.0 Globulin 3.1 Albumin/Globulin Ratio 1.3 Quality Measures Quality Measures VTE prophylaxis Assessment & Plan Assessment Current Active Medications: Generic Name Dose Route Start Last Admin Trade Name Freq PRN Reason Stop Dose Admin Al Hydrox/Mg Hydrox/Simethicone 15 ml 09/27/25 18:00 10/01/25 13:17 Mg Hyd/Al Hyd/Maximino (Maalox Reg) Susp 30 Ml Udc PO 10/27/25 17:59 15 ml Q4HR EFREN Administration Dextrose 25 ml 09/27/25 16:38 Dextrose 50%-Water Inj 50 Ml Syringe IV 10/27/25 16:37 Q15MIN PRN BG 50-70 responsive npo pt Dextrose 50 ml 09/27/25 16:38 Dextrose 50%-Water Inj 50 Ml Syringe IV 10/27/25 16:37 Q15MIN PRN BG <50 OR BG <70 & pt unresponsive Glucagon 1 mg 09/27/25 16:38 Glucagon Inj 1 Mg Vial IM Q15MIN PRN BG <70, and no IV access Insulin Degludec 28 unit 10/02/25 09:00 Insulin Degludec 5 Unit/0.05 Ml (Per 5 Units) SC 11/01/25 08:59 QDAY EFREN Insulin Human Lispro 0 unit 09/28/25 16:04 10/01/25 12:11 Insulin Lispro (Admelog) 1 Unit/0.01 Ml Unit SC 10/27/25 16:59 5 unit ACHS EFREN Administration Protocol Insulin Human Lispro 12 unit 10/01/25 11:30 10/01/25 12:12 Insulin Lispro (Admelog) 1 Unit/0.01 Ml Unit SC 10/31/25 11:29 12 unit ACHS EFREN Administration Ondansetron HCl 4 mg 09/27/25 15:53 Ondansetron Inj 2 Mg/Ml Inj 2 Ml IVP 10/27/25 15:52 Q6H PRN NAUSEA OR VOMITING Protocol Pantoprazole Sodium 40 mg 09/28/25 21:00 10/01/25 08:31 Pantoprazole 40 Mg Tablet PO 10/28/25 20:59 40 mg BID EFREN Administration Sucralfate 1 gm 09/27/25 17:00 10/01/25 12:12 Sucralfate Susp 1 Gm/10 Ml Udc PO 10/27/25 16:59 1 gm QID EFREN Administration Plan Zack Mccartney, is 60yF, with PMH of diabetes, HTN, hypercholesterolemia, depression, leg length discrepancy (R>L), presented to the hospital on 09/27/2025 following a reported suicide attempt involving the ingestion of hydrogen peroxide. Patient will be admitted for management of hydrogen peroxide intoxication. #Gastritis with hemorrhage #Caustic ingestion (Hydrogen Peroxide 3% solution) #Lactic Acidosis - Resolved -at approximately 10:00 am morning (09/27), she consumed an estimated 3-4 ounces of a 3% hydrogen peroxide solution. Epigastric pain afterwards Per ED note, after 20 minutes of ingestion, patient vomited foamy vomitus with blood Lactic acid 3.4, now 1.1. Utox neg -EKG (09/27/2025): Sinus Rhythm -CT chest/abd/pelvis wo contrast (09/27/2025): No bowel ischemia, Absent gallbladder, Minimal air in the liver, No air in the portal vein or mesenteric vein noted -CT abd/pelvis w contrast (09/27/2025): No portal venous gas identified -EGD (09/27/2025): Esophagitis, Gastritis with hemorrhage, characterized by congestion (edema), Normal Examined duodenum Plan: -GI consulted: Maalox 15ml po q4hr Carafate sucralfate suspension 1g 4 times daily, PO protonix 40mg bid #Diabetes Mellitus, hemoglobin A1c 11 #Hx of Hypercholesterolemia -On admission, patient's Blood glucose level was 330 Plan: - Insulin degludec 28 units daily - Increased to Lispro 12 units ACHS - Sliding scale insulin step 3 - Hypoglycemia protocol - Dietitian consulted: educated on diabetes management, recommended freestyle michelle 3+ and reader to prescribed at discharge #Suicidal ideation #Depression -Ingestion of hydrogen peroxide for attempted suicide -Prior suicidal behavior, including an incident in which she drove her car to the edge of a [place] with the intention of driving off, but stopped before acting on the impulse. -Multiple psychosocial stressors including relationship with her boyfriend Plan: -One to One observation, suicide precautions #Right leg swelling -According to patient, her right leg often swells because all the pressure goes to her right leg because right leg is longer. - Venous Doppler negative for DVT - CTM Disposition: Med [facility], anticipate medical clearance for crisis team to evaluate within 1 to 2 days pending adequate glucose control Diet: Carb consistent low GI prophylaxis: PO protonix 40mg bid DVT prophylaxis: SCD Code: FULL Case discussed with Attending Physician Dr. Khan and PGY-2 Dr. Casas. Aleja Carrington, DO Internal Medicine PGY-1 Attending Provider Attestation/Addendum I have discussed and was present for the essential components of the history, physical examination, diagnosis, and treatment plan with the resident. I agree with the patient's care as documented by the resident and amended herein by me. Vivek Khan DO. Although this document has been carefully reviewed, there may still be some phonetic and other typographical errors. These errors are purely grammatical due to imperfections in the software program and should not be construed in any way to compromise the substance of the patient's medical care during this visit.
[2025-10-01] MEDS: INSULIN DEGLUDEC 5 UNIT/0.05 ML (PER 5 UNITS) 3 UNIT SC (14:48)
--- NOTE | 2025-10-01 14:53 | PC.SS ---
Rounding Note: Patient remains not medically cleared for mental health evaluation due to elevated glucose levels.
--- NOTE | 2025-10-01 21:25 | PD.IMPROG ---
Documentation for date of: 10/01/25 Subjective Subjective Interval history: Patient evaluated Exam Vital Signs Temp Pulse Resp BP Pulse Ox O2 Del Method O2 Flow Rate 97.2 F 75 16 122/68 95 Room Air 2 10/01/25 16:00 10/01/25 16:00 10/01/25 16:00 10/01/25 16:00 10/01/25 16:00 10/01/25 16:00 09/29/25 16:00 Objective Labs 10/01/25 06:00 10/01/25 06:00 Labs: Laboratory Results - last 24 hr 10/01/25 06:00 WBC 8.0 RBC 4.52 Hgb 13.4 Hct 39.3 MCV 87 MCH 29.6 MCHC 34.1 RDW Std Deviation 44.1 Plt Count 215 Neut % (Auto) 65 Lymph % (Auto) 25 [place] % (Auto) 9 Eos % (Auto) 1 Baso % (Auto) 0 Neut # (Auto) 5.2 Lymph # (Auto) 2.0 [place] # (Auto) 0.7 Eos # (Auto) 0.1 Baso # (Auto) 0.0 Immature Gran # (Auto) 0.03 H Absolute Nucleated RBC 0.00 Immature Gran % 0 Nucleated RBC % 0 Sodium 140 Potassium 4.3 D Chloride 104 Carbon Dioxide 26.9 Anion Gap 9 BUN 22 Creatinine 0.7 Estim Creat Clear Calc 75.1 eGFR > 60 BUN/Creatinine Ratio 31 H Glucose 160 H Calculated Osmolality 285 Calcium 9.3 Corrected Calcium 9.3 Phosphorus 4.4 Magnesium 2.1 Total Bilirubin 0.6 AST 32 ALT 31 Alkaline Phosphatase 99 Total Protein 7.1 Albumin 4.0 Globulin 3.1 Albumin/Globulin Ratio 1.3 Impressions Impression: Status post ingestion of hydrogen peroxide with gastric injury leading to hemorrhagic gastritis Continue to monitor CBC Continue current management with sucralfate and Protonix Assessment & Plan A&P Narrative # Hematemesis secondary to ingestion of hydrogen peroxide CT scan of the abdomen pelvis negative except for air in the liver with no air in the biliary tree Plan N.p.o. IV Protonix Consent for fiberoptic esophagogastroduodenoscopy with possible biopsy possible therapeutic intervention under intravenous moderate sedation Thank you for the opportunity to participate in the care of this patient Time Spent With Patient Time: Total time spent is greater than 50% in coordination of care (as documented) at patient's floor/unit and/or counseling patient:
[2025-10-02] VITALS: BP 125/79; PULSE 74; RESP 18; TEMP 36; O2SAT 93
[2025-10-02 01:07] VITALS: PULSE 77
[2025-10-02] MEDS: MG HYD/AL HYD/SIME (Maalox Reg) SUSP 30 ML UDC 15 ML PO ×4 (01:34→13:25)
[2025-10-02 04:00] VITALS: BP 122/73; PULSE 75; PULSE 83; RESP 18; TEMP 36.1; O2SAT 95
[2025-10-02] MEDS: SUCRALFATE SUSP 1 GM/10 ML UDC PO ×2 (06:02→12:06)
[2025-10-02 06:32] LABS: Basophils # (Auto) 0.0 Thou/mm3 (0.0-0.2); Basophils % (Auto) 1 % (0-2.5); Eosinophils # (Auto) 0.1 Thou/mm3 (0.0-0.5); Eosinophils % (Auto) 2 % (0-10); Hematocrit 38.0 % (36.0-46.0); Hemoglobin 12.6 g/dL (12.0-16.0); Immature Granulocytes Auto 0.02 Thou/mm3 (0.00-0.00); Lymphocytes # (Auto) 2.0 Thou/mm3 (1.0-4.8); Lymphocytes % (Auto) 29 % (10-50); Mean Corpuscular HGB Conc 33.2 g/dl (31.0-37.0); Mean Corpuscular Hemoglobin 29.0 pg (25.0-35.0); Mean Corpuscular Volume 88 fL (80-100); Monocytes # (Auto) 0.8 Thou/mm3 (0.0-0.8); Monocytes % (Auto) 11 % (0-12); Neutrophils # (Auto) 4.0 Thou/mm3 (1.8-7.7); Neutrophils % (Auto) 58 % (37-80); Nucleated Red Blood Cell # 0.00 Thou/mm3 (0.00-0.00); Nucleated Red Blood Cell % 0 /100 WBC (0); Platelet Count 205 Thou/mm3 (140-440); RDW Standard Deviation 44.6 fL (36.4-46.3); Red Blood Count 4.34 Miln/mm3 (4.00-5.20); White Blood Count 6.8 Thou/mm3 (3.6-11.0)
[2025-10-02 06:44] LABS: Alanine Aminotransferase 31 U/L (10-49); Albumin, Serum 4.2 gm/dL (3.5-5.0); Albumin/Globulin Ratio 1.5 (1.2-2.2); Alkaline Phosphatase 98 U/L (46-116); Anion Gap 9 (7-16); Aspartate Amino Transferase 28 U/L (0-34); BUN/Creatinine Ratio 36 Ratio (12-20); Bilirubin,Total 0.7 mg/dL (0.3-1.2); Blood Urea Nitrogen 25 mg/dL (9-23); Calcium 9.5 mg/dL (8.3-10.6); Calcium (Corrected) 9.5 mg/dL (8.5-10.1); Carbon Dioxide 28.0 mMol/L (20.0-31.0); Chloride 104 mMol/L (98-107); Creatinine (Component) 0.7 mg/dL (0.6-1.3); Estimated Creatinine Clearance 75.1 mL/min (>60); Globulin 2.8 gm/dL (2.3-3.5); Glucose 153 mg/dL (74-106); Magnesium 1.9 mg/dL (1.6-2.6); Osmolality,Calculated 288 (275-295); Phosphorous 4.4 mg/dL (2.4-5.1); Potassium 4.1 mMol/L (3.4-5.1); Sodium 141 mMol/L (136-145); Total Protein 7.0 gm/dL (5.7-8.2); eGFR > 60 See Note
[2025-10-02] MEDS: INSULIN LISPRO (AdmeLOG) 1 UNIT/0.01 ML UNIT 12 UNIT SC ×2 (07:48→12:05)
[2025-10-02 08:00] VITALS: BP 131/79; PULSE 76; PULSE 79; RESP 17; TEMP 36.3; O2SAT 95
--- NOTE | 2025-10-02 08:56 | PC.SS ---
Update: Patient pending medical clearance in order to conduct mental health evaluation.
[2025-10-02] MEDS: INSULIN DEGLUDEC 5 UNIT/0.05 ML (PER 5 UNITS) 28 UNIT SC (09:22)
[2025-10-02] MEDS: PANTOPRAZOLE 40 MG TABLET PO (09:22)
--- NOTE | 2025-10-02 10:14 | PC.SS ---
CHURN OPERATOR MARGARINE notified by Dr. Carrington that patient is medically cleared for mental health evaluation. CHURN OPERATOR MARGARINE notified ED coordinator.
--- NOTE | 2025-10-02 10:15 | PC.SS ---
SS was contacted by Francis ARCHIBALD that patient was medically cleared. SS confirmed with Dr. Khan. SS notified Corinna BARRIOS that patient was medically cleared.
--- NOTE | 2025-10-02 11:21 | ESPR_ITS ---
Documentation for date of: 10/02/25 Subjective Subjective Interval history: No difficulty swallowing tolerating food very well Exam Vital Signs Temp Pulse Resp BP Pulse Ox O2 Del Method O2 Flow Rate 97.4 F 79 17 131/79 H 95 Room Air 2 10/02/25 08:00 10/02/25 08:00 10/02/25 08:00 10/02/25 08:00 10/02/25 08:00 10/02/25 08:00 10/02/25 04:00 Objective Labs 10/02/25 05:39 10/02/25 05:39 Labs: Laboratory Results - last 24 hr 10/01/25 10/02/25 06:00 05:39 WBC 6.8 RBC 4.34 Hgb 12.6 Hct 38.0 MCV 88 MCH 29.0 MCHC 33.2 RDW Std Deviation 44.6 Plt Count 205 Neut % (Auto) 58 Lymph % (Auto) 29 [place] % (Auto) 11 Eos % (Auto) 2 Baso % (Auto) 1 Neut # (Auto) 4.0 Lymph # (Auto) 2.0 [place] # (Auto) 0.8 Eos # (Auto) 0.1 Baso # (Auto) 0.0 Immature Gran # (Auto) 0.02 H Absolute Nucleated RBC 0.00 Immature Gran % 0 Nucleated RBC % 0 Sodium 141 Potassium 4.1 Chloride 104 Carbon Dioxide 28.0 Anion Gap 9 BUN 25 H Creatinine 0.7 Estim Creat Clear Calc 75.1 eGFR > 60 BUN/Creatinine Ratio 36 H Glucose 153 H Calculated Osmolality 288 Calcium 9.5 Corrected Calcium 9.5 Phosphorus 4.4 Magnesium 1.9 Total Bilirubin 0.7 AST 28 ALT 31 Alkaline Phosphatase 98 Total Protein 7.1 7.0 Albumin 4.2 Globulin 3.1 2.8 Albumin/Globulin Ratio 1.3 1.5 Impressions Impression: Hydrogen peroxide induced erosive gastritis no evidence of dysphagia continue current management Assessment & Plan A&P Narrative # Hematemesis secondary to ingestion of hydrogen peroxide CT scan of the abdomen pelvis negative except for air in the liver with no air in the biliary tree Plan N.p.o. IV Protonix Consent for fiberoptic esophagogastroduodenoscopy with possible biopsy possible therapeutic intervention under intravenous moderate sedation Thank you for the opportunity to participate in the care of this patient Time Spent With Patient Time: Total time spent is greater than 50% in coordination of care (as documented) at patient's floor/unit and/or counseling patient:
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
--- NOTE | 2025-10-02 11:45 | PC.SS ---
BOTTLE LINE WORKER notified by ED coordinator that patient has been cleared by crisis team. Patient to d/c home with family. ED coordinator updated residential team and bedside nurse.
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
[2025-10-02 12:00] VITALS: BP 135/73; PULSE 62; PULSE 89; RESP 18; TEMP 36.2; O2SAT 93
[2025-10-02] MEDS: INSULIN LISPRO (AdmeLOG) 1 UNIT/0.01 ML UNIT SC (12:04)
--- NOTE | 2025-10-02 14:43 | ESDS_ITS ---
Planned Discharge Date 10/02/25 DS: Providers Provider Date of admission: 09/27/25 15:50 Primary care physician: Physician No Primary/Family Admitting Provider: Trae Lopez MD Attending Provider on Admission: Frederic Khan DO Consults: 09/27/25 11:41 Consult to Gastroenterology Stat Comment: Ingestion of hydrogen peroxide Consulting Provider: Antelmo Kang 09/28/25 13:19 Referral Registered Dietitian Routine Comment: Referral Registered Dietitian Stat Comment: Attending Provider on DC: Frederic Khan DO Discharging Provider: Frederic Khan DO DS: Diagnosis Problem List Completed Was Problem List Reviewed/Reconciled?: Yes Hospital Course Hospital Course Hospital course: Summary: Zack Mccartney, is 60yF, with PMH of diabetes, HTN, hypercholesterolemia, depression, leg length discrepancy (R>L), presented to [facility] ED on 09/27/2025 following a reported suicide attempt involving the ingestion of hydrogen peroxi de, admitted for management of hydrogen peroxide intoxication. Patient has a history of suicidal behavior. On morning of admission, patient approximately consumed 3 to 4 ounces of 3% hydrogen peroxide and experienced epigastric pain and vomiting following. Imaging negative as below. On 09/27, patient underwent EGD which showed esophagitis, gastritis with hemorrhage characterized by congestion/edema with normal duodenum. Per GI recommendations, patient was treated with Maalox, Carafate and Protonix. Of note, crisis team evaluated slightly delayed by hyperglycemia, on admission blood glucose 330. Insulin regimen adjusted to obtain blood glucose consistently under 200. Patient was seen by crisis team on 10/02/2025 and was cleared for safe discharge home. Patient be discharged with long-acting insulin instructed to continue metformin. Currently processing prior authorization for Ozempic. Dietitian also consulted, educated diabetes management. Of note, patient reports chronic inte rmittent right leg swelling, right leg ultrasound taken negative for DVT. On discharge, patient is hemodynamically stable, vitals and labs reviewed to be stable and patient is ready to be discharged home. Imaging: EKG (09/27/2025): Sinus Rhythm CT chest/abd/pelvis wo contrast (09/27/2025): No bowel ischemia, Absent gallbladder, Minimal air in the liver, No air in the portal vein or mesenteric vein noted CT abd/pelvis w contrast (09/27/2025): No portal venous gas identified Discharge Recommendations: - Please take all medications as prescribed - START insulin degludac 35u in the morning - START metformin 1 g twice daily - START Ozempic at lowest dose once weekly if prior authorization completed - You have been prescribed Freestyle Estephania sensor and reader - Continue all home medications except as above - Please follow up with your PCP within one week of discharge - If your symptoms worsen, please seek immediate medical attention and return to your nearest emergency room. - If you do not have a PCP, you may follow up at the [facility] [address], [facility] [address], Hospital Diagnoses: #Gastritis with hemorrhage #Caustic ingestion (Hydrogen Peroxide 3% solution) #Lactic Acidosis - Resolved #Diabetes Mellitus, hemoglobin A1c 11 #Hx of Hypercholesterolemia #Suicidal ideation #Depression #Right leg swelling Plan of care discussed with attending Dr. Khan, and PGY-3 Dr. Carter. Aleja Carrington, DO Internal Medicine, PGY-1 Senior Resident Attestation: I discussed with and supervised the internal revenue service agent physician involved in the care of this patient. I personally saw and examined the patient and discussed the assessment and plan with the entire medicine team, including my attending. I agree with the discharge plan as documented above. Kurt Carter MD PGY3 Internal Medicine Time Spent with Patient Time attestation: Total time spent providing and/or coordinating discharge services: Time spent: Greater than 30 minutes Exam Vital Signs Temp Pulse Resp BP Pulse Ox O2 Del Method O2 Flow Rate 97.1 F 62 18 135/73 H 93 L Room Air 2 10/02/25 12:00 10/02/25 12:00 10/02/25 12:00 10/02/25 12:00 10/02/25 12:00 10/02/25 08:00 10/02/25 04:00 Narrative Exam GENERAL: AOx3, no acute distress HEENT: mucous membranes moist, bilateral sclera anicteric CARDIOVASCULAR: regular rate and rhythm, S1/S2 present, no murmurs appreciated PULMONARY: clear to auscultation bilaterally, no rales/rhonchi/wheezes ABDOMINAL: soft, non-tender, non-distended, no rebound/guarding, bowel sounds present EXTREMITIES: no peripheral edema SKIN: warm and dry, intact, no rashes NEURO: CN II-XII grossly intact, no focal deficits, alert, following commands Psych: Behavior: Lying comfortably in bed, no psychomotor agitation or retardation Speech: Normal rate, volume and tone, non-pressured Mood: Ok Affect: Euthymic, broad range, normal intensity and reactivity, stable Thought process: Linear and logical Associations: Tight Thought content: Denies SI/HI/AVH, denies persecutory delusions Perceptual disturbance: Does not appear to be responding to internal stimuli, not internally preoccupied Discharge Plan Plan Patient Disposition: HOME (Self Care) Patient condition on transfer: Stable Care Plan Goals: ? You have been started on a long-acting insulin. Take 35 units once a day. ? You have been started on a medication metformin for diabetes. Take 1 tablet twice a day. ? You have been started on a medication semaglutide/Ozempic for diabetes. Take 1 shot once per week. ? You have been started medication sucralfate for your ulcers on your stomach. Take 1 tablet twice a day for the next 2 weeks. ? You have been prescribed a glucose monitor, freestyle estephania 3+. Monitor your blood glucose daily and try to keep it in the 140?180 range. Recommend to come to your calories. If you go hypoglycemic, blood glucose level less than 80 and start to feel dizzy, palpitations, sweaty eat a meal or drink a sugary drink. - Follow up with your primary care physician within 1 week of discharge. If you do not have a primary care physician, please follow up with the [facility] Residents clinic ([phone]) ? If you experience any new, worsening or persistent symptoms either call your primary doctor, or dial 911 or present to the emergency department. Prescriptions/Referrals Prescriptions/Med Rec: New sucralfate 100 mg/mL Suspension 1 g PO QID 14 Days Qty: 560 0RF pantoprazole 40 mg Tablet,Delayed Release (Dr/Ec) 40 mg PO BID 30 Days Qty: 60 0RF semaglutide 0.25 mg or 0.5 mg (2 mg/3 mL) pen injector 0.25 mg subcut QWEEK 30 Days Qty: 1.84 0RF Rx Instructions: for 4 weeks insulin degludec [Tresiba FlexTouch U-100] 100 unit/mL (3 mL) insulin pen 35 unit subcut QDAY 30 Days Qty: 10.5 3RF sucralfate 1 gram tablet 1 g PO BID 14 Days Qty: 28 0RF metformin 500 mg tablet 500 mg PO BIDWMEAL 30 Days Qty: 60 3RF (DME) pen needle, diabetic [1st Tier Unifine Pentips] 31 gauge x 3/16 needle See Rx Instructions .Route Qty: 100 0RF Rx Instructions: Once a day (DME) FreeStyle Estephania 3 Plus Sensor Device See Rx Instructions .Route Qty: 1 3RF Rx Instructions: Monitor blood glucose 5 times a day and change sensor every 15 days (DME) FreeStyle Estephania 3 Candor Misc See Rx Instructions .Route Qty: 1 0RF Rx Instructions: As directed Referrals: No Primary/Family,Physician [Primary Care Provider] Patient/Caregiver Discharge Instructions Education Materials: CGM, Healthy Meals for Diabetes, Diabetes Exercise Get Started, Blood Sugar Monitoring and ..., Diabetes Learn Serve Portion Size, Insulin and Type 2 Diabetes, Can You Control Diabetes ... Print Language: Tamazight Stand Alone Forms: Tracee Award Info., Patient Portal Info Letter Discharge Order Discharge Orders: Discharge (Routine); Ordered 10/02/25 Ordered By: Marc Casas Quality Discharge Quality Measures VTE prophylaxis Attestestation Attestation I have discussed and was present for the essential components of the discharge history, physical examination, diagnosis, and discharge treatment plan with the resident. I agree with the patient's discharge care as documented by the resident and amended herein by me. Vivek Khan DO. The patient understood all discharge instructions, all questions were answered satisfactorily. The patient was instructed to return to the Emergency Department is symptoms worsened or persisted. Although this document has been carefully reviewed, there may still be some phonetic and other typographical errors. These errors are purely grammatical due to imperfections in the software program and should not be construed in any way to compromise the substance of the patient's medical care during this visit.
--- NOTE | 2025-10-02 15:29 | PC.CC ---
Met w/ patient at bedside with mother and sister; ELDON Arreola provided translation. Newly diagnosed DM A1c 11.0 discharging on insulin. Patient states she has not seen a primary provider for a year but has used [facility] in [place] in the past. She has watched her sister give their mother insulin, but has information technology architect herself with shots. Patient attempted to defer injections to her sister; the importance of patient's ability to self-administer was emphasized. Demonstrated preparation of insulin pen and injection technique and verified understanding via Teach Back. Patient able to appropriately assemble insulin pen, dial and administer dose into demonstration cube. Use of CGM including blood sugar alarms was discussed. Hypoglycemia next steps discussed. Family had questions anti-diabetic medications and their efficacy and side effects. Time was taken to answer family's questions including patient's diabetic regimen as well as the effect of high blood sugar on kidneys. Patient was encouraged to establish primary care within 2 weeks. S/W [facility] pharmacy to confirm coverage of Ozempic. [facility] requested formulary metformin IR in addition to dosing instructions on pen needles and testing supplies. Relayed to Dr. Casas.
== END 2025-10-02 15:47 | disposition home or self-care (01) | DRG 913 ==
LOC: SERX 15:28 → SERHOLD 17:10 → S3SX 17:56
PROVIDERS: Nurse Practitioner Family; Specialist; Admitting Provider Internal Medicine; Emergency Provider Emergency Medicine; Visit Provider Student in an Organized Health Care Education/Training Program
PROC: (CPT 43239; principal; 2025-09-27 17:15)
DX: T14.91XA Suicide attempt, initial encounter (principal); K29.71 Gastritis, unspecified, with bleeding; K92.0 Hematemesis; E87.20 Acidosis, unspecified; T49.0X2A Poisoning by local antifungal, anti-infective and anti-inflammatory drugs, intentional self-harm, initial encounter; I10 Essential (primary) hypertension; F32.A Depression, unspecified; E78.5 Hyperlipidemia, unspecified; R10.13 Epigastric pain; K20.90 Esophagitis, unspecified without bleeding; M21.70 Unequal limb length (acquired), unspecified site; M79.89 Other specified soft tissue disorders; E11.65 Type 2 diabetes mellitus with hyperglycemia; Z79.4 Long term (current) use of insulin; E78.00 Pure hypercholesterolemia, unspecified; R13.10 Dysphagia, unspecified
CPT/HCPCS: 36415; 71250; 74176; 74177; 80053; 80061; 80307; 80320; 81001; 83036; 83605; 83690; 83735; 84100; 84439; 84443; 85025; 85610; 85730; 86850; 86900; 86901; 93005; 93225; 93970; 96127; 96361; 96374; 96375; 99284; A4649; J0500; J1200; J1815; J2250; J2405; J2470; J3010; J7120; Q9967; A9270; G0480

== ENCOUNTER 2025-10-09 12:59 | Outpatient (AMB) | payer MEDICARE, MEDICAID, SELFPAY ==
--- NOTE | 2025-10-09 13:28 | PD.RESCLINIC ---
Vital Signs 10/09/25 13:29 10/09/25 14:12 Height 1.48 m Height Method Measured Weight 69.853 kg Weight Measurement Method Standing Scale BMI 31.8 BP 149/84 H 146/77 H Blood Pressure Source Automatic Cuff Automatic Cuff Blood Pressure Location Right Upper Arm Right Upper Arm Position Sitting Sitting Respiration 18 Pulse 77 Pulse Source Monitor Temp 97.2 F Temp Source Temporal Artery Scan Pulse Oximetry (%) 97 Oxygen Delivery Method Room Air Allergies/Meds Allergies & Medications Allergies No Known Allergies Allergy (Verified 10/09/25 13:30) Medication Reconciliation insulin degludec 100 unit/mL (3 mL) subcutaneous pen (Tresiba FlexTouch U-100 insulin) 35 unit (0.35 mL) subcut QDAY 1 month #10.5 mL 10/02/25 [Rx Confirmed 10/09/25] metformin 500 mg tablet 500 mg PO BIDWMEAL 1 month #60 tabs 10/02/25 [Rx Confirmed 10/09/25] pantoprazole 40 mg tablet,delayed release 40 mg PO BID 30 days #60 tabs 10/02/25 [Rx Confirmed 10/09/25] pen needle, diabetic 31 gauge x 3/16 (1st Tier Unifine Pentips) #100 ea 10/02/25 [Rx Confirmed 10/09/25] semaglutide 0.25 mg or 0.5 mg (2 mg/3 mL) subcutaneous pen injector 0.25 mg (0.368 mL) subcut QWEEK 1 month #1.84 mL 10/02/25 [Rx Confirmed 10/09/25] sucralfate 1 gram tablet 1 g PO BID 2 weeks #28 tabs 10/02/25 [Rx Confirmed 10/09/25] sucralfate 100 mg/mL oral suspension 1 g (10 mL) PO QID 14 days #560 mL 10/02/25 [Rx Confirmed 10/09/25] aspirin 81 mg tablet,delayed release (Adult Low Dose Aspirin) 81 mg PO QDAY #30 tabs 10/09/25 [Rx] blood-glucose sensor (FreeStyle Setephania 3 Plus Sensor device) #1 ea 10/09/25 [Rx] blood-glucose,cryptologic technician,cont (FreeStyle Estephania 3 Murray) #1 ea 10/09/25 [Rx] empagliflozin 25 mg tablet (Jardiance) 25 mg PO QDAY 1 month #30 tabs 10/09/25 [Rx] glipizide 10 mg tablet 10 mg PO BID 1 month #60 tabs 10/09/25 [Rx] MA Intake Visit Data Collection New Patient or Established: Established Patient (seen at [facility] within 3 years) Seen by Clinical Staff ONLY (RN/MA): No Pain Present Currently: No Pain scale:: 0 Pain Scale Used: Hammer-Keyes/Numer[employer] Cio Required: No PCP or OBGYN visit in last 3 months: No Hx Now: No Do You Feel Safe at Home: Yes Authorities Contacted: N/A Smoking Status Smoking Status: Never smoker Immunization / Flu Flu Vaccine in the Last 12 Months: No Flu Vaccine Exclusion Criteria: Already Received Past Medical History Past Medical History NEUROLOGIC: Negative Seizures CARDIAC: Positive Hypercholesterolemia and Hypertension; Negative Congestive Heart Failure RESPIRATORY: Negative Chronic Obstructive Pulmonary Disease (COPD) or Asthma GENITOURINARY: Negative Renal Disease ENDOCRINE: Positive Diabetes Mellitus Type 2; Negative Diabetes Mellitus Type 1 HEMATOLOGIC: Negative Sickle Cell Disease OTHER HISTORY: Negative Blood Transfusions, Anesthesia Reactions or Chicken Pox Surgical History SURGICAL: Positive Hysterectomy and Section Social History SMOKING STATUS: Smoking status: Never smoker ALCOHOL: Alcohol Intake: Never HOUSING: Housing: mobile home LIVES WITH: Lives With: Family Patient Portal Questionaires PHQ-9 PHQ-2 Over the last 2 weeks, how often have you been bothered by any of the following problems? 1. Little interest or pleasure in doing things: not at all 2. Feeling down, depressed, or hopeless: not at all Total score: 0 Social History Living Situation History Housing: mobile home Tobacco History Smoking Status: Never smoker Alcohol History Alcohol Intake: Never Domestic Abuse History Do You Feel Safe at Home: Yes Review of Systems Report any current symptoms Only answer those that you have currently: Past Medical History Past Medical History Have you ever been diagnosed with any of the following: Neurological Problems Seizures: No Cardiology Problems Hypercholesterolemia: Yes Congestive Heart Failure: No Hypertension: Yes Respiratory Problems Chronic Obstructive Pulmonary Disease (COPD): No Asthma: No Genital/Urinary Problems Renal Disease: No Endocrine Problems Diabetes Mellitus Type 1: No Diabetes Mellitus Type 2: Yes Blood Problems Sickle Cell Disease: No Other Problems Blood Transfusions: No Anesthesia Reactions: No Chicken Pox: No Surgical History Hysterectomy: Yes History of Present Illness HPI Narrative 60 y/o F with PMHx of diabetes, HTN, hypercholesterolemia, depression, leg length discrepancy (R>L), presented to [facility] ED on 09/27/2025 following a reported suicide attempt involving the ingestion of hydrogen peroxide, admitted for management of hydrogen peroxide intoxication. Had GI work up and was cleared by crisis team and was discharged. 10/09/2025: Patient seen today at the [facility] here for medication refills and establishing care. Patient is requesting lancets and glucometer to check her BS. Objective/Exam Narrative Physical exam: Physical Exam GENERAL: NAD, AAOx3 HEENT: Moist mucosa. Eyes open, symmetrical, & clear CARDIO: Heart RRR, no obvious murmurs PULM: No noted coughing/dyspnea CTA B/L, no R/W/R GI: Abdomen soft, nondistended, no pain on palpation. BSx4 SKIN/MSK/EXT: No wounds/rashes/edema/amputations, no pain on palpation. Pedal pulses present B/L NEURO: AAOx3, no focal neuro deficits, able to move all 4 extremities Assessment & Plan Diagnosis / Problem List (1) Insulin dependent diabetes mellitus: Status: Acute Plan: diabetic medications refilled. (2) Establishing care with new doctor, encounter for: Status: Acute Plan: basic labs cbc, cmp, tsh, a1c ordered to establish care (3) Hypertension: Status: Acute Plan BP elevated at todays visit 140/73, patient states her BP usually runs on the lower side at home. Recommended lifestyle modifications and will reevaluate next visit. Orders: Orders Comprehensive Metabolic Panel Today Ambulatory Hemoglobin A1C Today Lipid Panel Today CBC Today Thyroid Stimulating Hormone Today Office Procedures [facility] Level of Care Nursing/Assessment Patient Status: Initial/New Patient Nursing Assessment/Reassessment: Medication Reconciliation and Update PMH in EMR Coordination of Care: Complex Care and Chronic Disease 1-5, Complex Care/Chronic Disease 5 or more, Consent,records obtained, informed consent, 2-3 Insurance Autorizations needed, Results/Orders obtained and Staff clarify orders New Patient Charge New Patient Point Assignment: [id number] New Patient Point Charge: CONTACT AND SERVICE CLERKS SUPERVISOR Level 3 ([id number]) TB Screening LTBI Screening: Has patient traveled, was born, or resided for at least 1 month, or frequent border crossing into a country with an elevated TB rate: No Immunosuppression, current or planned (HIV, organ transplant, treated with biologic agents, steroids, or other immunosuppression medication): No Close contact to someone with infectious TB disease during lifetime: No Homelessness or incarceration, current or past: No TB testing indicated at this time (at least 1 yes above): No
[2025-10-09 13:29] VITALS: BP 149/84; PULSE 77; RESP 18; TEMP 36.2; O2SAT 97; BMI 31.8
[2025-10-09 14:12] VITALS: BP 146/77
== END 2025-10-09 14:12 | disposition home or self-care (01) ==
LOC: HODAHC 12:59
PROVIDERS: Supervising Provider Internal Medicine; Visit Provider Student in an Organized Health Care Education/Training Program
DX: E11.9 Type 2 diabetes mellitus without complications (principal); Z79.4 Long term (current) use of insulin; I10 Essential (primary) hypertension
CPT/HCPCS: 99203; G0463

== ENCOUNTER → 2025-10-29 | Outpatient (CLI) | payer MEDICARE, MEDICAID, SELFPAY ==
[2025-10-29 10:28] LABS: Basophils # (Auto) 0.1 Thou/mm3 (0.0-0.2); Basophils % (Auto) 1 % (0-2.5); Eosinophils # (Auto) 0.3 Thou/mm3 (0.0-0.5); Eosinophils % (Auto) 4 % (0-10); Hematocrit 42.6 % (36.0-46.0); Hemoglobin 13.7 g/dL (12.0-16.0); Immature Granulocytes Auto 0.02 Thou/mm3 (0.00-0.00); Lymphocytes # (Auto) 0.9 Thou/mm3 (1.0-4.8); Lymphocytes % (Auto) 14 % (10-50); Mean Corpuscular HGB Conc 32.2 g/dl (31.0-37.0); Mean Corpuscular Hemoglobin 28.2 pg (25.0-35.0); Mean Corpuscular Volume 88 fL (80-100); Monocytes # (Auto) 0.6 Thou/mm3 (0.0-0.8); Monocytes % (Auto) 9 % (0-12); Neutrophils # (Auto) 4.8 Thou/mm3 (1.8-7.7); Neutrophils % (Auto) 72 % (37-80); Nucleated Red Blood Cell # 0.00 Thou/mm3 (0.00-0.00); Nucleated Red Blood Cell % 0 /100 WBC (0); Platelet Count 235 Thou/mm3 (140-440); RDW Standard Deviation 46.4 fL (36.4-46.3); Red Blood Count 4.86 Miln/mm3 (4.00-5.20); White Blood Count 6.7 Thou/mm3 (3.6-11.0)
[2025-10-29 10:46] LABS: Glucose Estimated Average 197 mg/dL (80-131); Hemoglobin A1C 8.5 % Hgb (4.8-6.0)
[2025-10-29 10:52] LABS: Alanine Aminotransferase 26 U/L (10-49); Albumin, Serum 4.5 gm/dL (3.5-5.0); Albumin/Globulin Ratio 1.3 (1.2-2.2); Alkaline Phosphatase 108 U/L (46-116); Anion Gap 9 (7-16); Aspartate Amino Transferase 28 U/L (0-34); BUN/Creatinine Ratio 27 Ratio (12-20); Bilirubin,Total 1.0 mg/dL (0.3-1.2); Blood Urea Nitrogen 16 mg/dL (9-23); Calcium 9.7 mg/dL (8.3-10.6); Calcium (Corrected) 9.7 mg/dL (8.5-10.1); Carbon Dioxide 25.7 mMol/L (20.0-31.0); Cardiac Risk Estimate 3.9 RATIO (3.7-5.6); Chloride 104 mMol/L (98-107); Cholesterol 239 mg/dL (132-200); Creatinine (Component) 0.6 mg/dL (0.6-1.3); Globulin 3.5 gm/dL (2.3-3.5); Glucose 124 mg/dL (74-106); HDL Cholesterol 61 mg/dL (40-60); LDL Cholesterol,Calculated 136 mg/dL (0-130); Osmolality,Calculated 279 (275-295); Potassium 4.1 mMol/L (3.4-5.1); Sodium 139 mMol/L (136-145); Thyroid Stimulating Hormone 1.89 uIU/mL (0.55-4.78); Total Protein 8.0 gm/dL (5.7-8.2); Triglycerides 211 mg/dL (30-150); eGFR > 60 See Note
== END | disposition home or self-care (01) ==
LOC: COPL 09:53
PROVIDERS: PCP Student in an Organized Health Care Education/Training Program; Referring Provider Student in an Organized Health Care Education/Training Program; Visit Provider Student in an Organized Health Care Education/Training Program
DX: E11.65 Type 2 diabetes mellitus with hyperglycemia (principal); Z79.4 Long term (current) use of insulin; Z13.29 Encounter for screening for other suspected endocrine disorder; I10 Essential (primary) hypertension; Z76.89 Persons encountering health services in other specified circumstances
CPT/HCPCS: 36415; 80053; 80061; 83036; 84443; 85025